=== PATIENT | female | born 1935 | race Caucasian/White ===

== ENCOUNTER → 2017-12-04 10:48 | Outpatient (CLI) | payer MEDICARE, SELFPAY ==
--- NOTE | 2017-12-04 10:57 | XR_ITS ---
XR foot RT min 3V HISTORY: Foot pain ITS.REASON: FLAT FOOT, HAMMERTOE ORDERING PHYSICIAN: Claudia Mccabe DPM PATIENT AGE: 82 years COMPARISON: None FINDINGS: Weightbearing views are performed. There is moderate to severe hallux valgus with first metatarsophalangeal angle of 46 degrees with mild osteoarthritic changes of the first MTP joint and hypertrophic changes of the distal aspect of the first metatarsal. Hammertoe deformity involves the second digit. There is mild pes planus. Cortical thickening involves the medial aspect of the mid shaft of the third metatarsal. No acute fracture or dislocation. IMPRESSION: 1. Hallux valgus with bunion formation. 2. Pes planus. 3. Hammertoe deformity second digit
--- NOTE | 2017-12-04 10:57 | XR_ITS ---
XR foot LT min 3V HISTORY: Foot pain ITS.REASON: FLAT FOOT, HAMMERTOE ORDERING PHYSICIAN: Claudia Mccabe DPM PATIENT AGE: 82 years COMPARISON: None FINDINGS: Weightbearing views are performed. There is moderate to severe hallux valgus with first metatarsophalangeal angle of 39 degrees with hypertrophic changes of the distal aspect of the first metatarsal and mild osteoarthritic change of the first metatarsophalangeal joint. Mild cortical thickening involves the medial aspect of the shaft of the third metatarsal. Mild osteoarthritic changes are present at the second and third cuneiform metatarsal junction. Borderline pes planus. Hammertoe deformity involves the second digit. IMPRESSION: 1. Hallux valgus with bunion formation. 2. Hammertoe deformity second digit 3. Borderline pes planus. 4. Osteoarthritic change of the midfoot
== END ==
PROVIDERS: Visit Provider Podiatrist
DX: M20.40 Other hammer toe(s) (acquired), unspecified foot (principal); M21.40 Flat foot [pes planus] (acquired), unspecified foot
CPT/HCPCS: 73630

== ENCOUNTER → 2017-12-13 12:48 | Outpatient (CLI) | payer MEDICARE, SELFPAY ==
--- NOTE | 2017-12-13 12:54 | US_ITS ---
US Arterial Ankle Brachial Ind INDICATION: Feet pain. Bilateral bunions with skin changes ORDERING PHYSICIAN: Claudia Mccabe DPM PATIENT AGE: 82 years TECHNIQUE: Segmental pressures obtained of both right and left leg. These are compared to brachial blood pressure to yield index at each level sampled including summary MYNOR. The data sheets from the procedure are available in PACS FINDINGS Rest study only performed today No prior studies available for comparison. Blood pressures reported are in millimeters mercury. RIGHT LEG MYNOR = 1.0. Right TBI equals 0.9 Brachial BP: 135 Thigh BP: 162 Calf BP: 165 Ankle PT: 155 Ankle DP : 149 Digit =127 LEFT LEG MYNOR = 1.0 Left TBI equals 0.6 Brachial BPD: 143 Thigh BP: 160 Calf BP: 152 Ankle PT:165 Ankle DP: 147 Digit = 89 Pulses and waveforms: Normal IMPRESSION: The ABIs as reported above are within normal limits. Waveforms and pulses are also unremarkable. TBI on the right is normal. The left TBI is slightly low at 0.6 suggesting small vessel disease on the left.
== END ==
PROVIDERS: PCP Internal Medicine Adolescent Medicine; Visit Provider Podiatrist
DX: R23.9 Unspecified skin changes (principal); R52 Pain, unspecified
CPT/HCPCS: 93922

== ENCOUNTER → 2018-01-09 06:46 | Outpatient (CLI) | payer MEDICARE, SELFPAY ==
--- NOTE | 2018-01-09 | CA_ITS ---
PROCEDURE: 2-D M-mode and color Doppler study INDICATIONS FOR THE TEST: Chest pain COPD Heart Murmur Tobacco Smokingex Palpitations Fatigue Syncope Edema Hypertension+Diabetes Mellitus Rheumatic Fever SOB MIRANDA Obesity Hyperlipidemia+ Family History HD Additional History abn EKG PATIENT INFORMATION HEIGHT: 67 WEIGHT: 174 GENDER: Female B/P: 181/91 2-D/M-MODE INTERPRETATION: 2-D MEASUREMENTS OBSERVED VALUES IN CMS Right Ventricular Dimension (RVDd) 2.6 Interventricular Septum (Thickness)(IVsd) 1.2 Left Ventricular Internal Dimensions(LVIDd) 3.3 Left Ventricular Posterior Wall (Thickness)(LVPWd) 1.2 Aortic Root 3.8 Aortic Cusp Separation 2.1 Left Atrial Dimensions (LAD) 2.0 2D 1. Left atrium is mildly enlarged, left ventricle is normal size, there is mild concentric left ventricular hypertrophy visually estimated ejection fraction 55% with no obvious regional wall motion abnormality. 2. The right atrium and right ventricle are normal size and contractility. 3. The aortic valve is minimally thickened and fibrosed. 4. The mitral valve has mitral annular calcification. 5. The tricuspid valve is grossly normal. 6. The pulmonic valve is poorly visualized. 7. No significant pericardial effusion noted. DOPPLER INTERROGATION: Doppler interrogation of the aortic, mitral and tricuspid presence of mild aortic, mitral and tricuspid regurgitation, tricuspid regurgitant jet velocity is insufficient for calculation of the right ventricular systolic pressure, grade 1 diastolic dysfunction seen without tissue Doppler evidence of raised left atrial pressure. CONCLUSION: 1. Mildly enlarged left atrium, normal left ventricular size, mild concentric left ventricular hypertrophy, visually estimated ejection fraction 55% with no obvious regional wall motion abnormality, grade 1 slight dysfunction seen without tissue Doppler evidence of raised left atrial pressure. 2. Mild aortic, mild mitral and tricuspid regurgitation 3. No significant pericardial effusion noted.
--- NOTE | 2018-01-09 06:55 | NM_ITS ---
NM miguel angel perf SPECT rest str CLINICAL INDICATION: ITS.REASON: PRE OP, HTN, ABN EKG ORDERING PHYSICIAN: Star Benavides MD PATIENT AGE: 82 years COMPARISON: None DOSE: 10.18 intravenously at rest followed by 31.8 following the intravenous ministration of 0.4 mg of Lexiscan. Resting blood pressure is 181/91. Stress blood pressure 158/81. FINDINGS: Ejection fraction is calculated to be 68%. No obvious wall motion abnormalities. SPECT and polar map images reviewed. No fixed or reversible defects are evident that would indicate infarction or ischemia IMPRESSION: 1. Normal ejection fraction of 68%. 2. No evidence of ischemia or infarction
--- NOTE | 2018-01-09 08:07 | HMH.ITSHM ---
MELOXICAM THYROID MED ASA VITAMIN D3 PERSERVISION PRAVASTIN
--- NOTE | 2018-01-09 08:49 | HMH.ITSHM ---
melozicam, thyroid med, aspirin, vit d3, perservision, pravastatin
== END ==
PROVIDERS: PCP Internal Medicine Adolescent Medicine; Visit Provider Internal Medicine
DX: Z01.810 Encounter for preprocedural cardiovascular examination (principal); R94.31 Abnormal electrocardiogram [ECG] [EKG]; E78.5 Hyperlipidemia, unspecified; I10 Essential (primary) hypertension
CPT/HCPCS: 78452; 93017; 93306; A9502; J2785

== ENCOUNTER → 2018-02-05 12:12 | Outpatient (CLI) | payer MEDICARE, SELFPAY ==
[2018-02-05 12:32] LABS: Basophils % 0.5 % (0.1-2.0); Eosinophils # 0.1 K/mm3 (0.0-0.4); Eosinophils % 1.1 % (0.1-12.0); Hematocrit 37.8 % (37.0-47.0); Hemoglobin 11.5 g/dL (12.2-16.2); Lymphocytes % 32.2 K/mm3 (10-50); Mean Corpuscular HGB Conc 30.5 g/dL (31.8-35.4); Mean Corpuscular Hemoglobin 27.8 pg (27.0-31.2); Mean Corpuscular Volume 91.1 fl (81-99); Monocytes # 0.4 K/mm3 (0.1-1.0); Monocytes % 6.2 % (1.7-9.3); Neutrophils # 3.8 K/mm3 (1.8-7.8); Platelet Count 287 K/mm3 (142-424); Red Blood Count 4.15 M/mm3 (4.20-5.40); Red Cell Distribution Width 13.3 % (11.5-17.5); White Blood Count 6.3 K/mm3 (4.8-10.8)
[2018-02-05 12:46] LABS: Alanine Aminotransferase 24 U/L (12-78); Albumin Level 4.2 gm/dL (3.4-5.0); Albumin/Globulin Ratio 1.2 (1.1-1.8); Alkaline Phosphatase 71 U/L (46-116); Anion Gap 11.9 mEq/L (5-15); Aspartate Amino Transferase 20 U/L (15-37); Bilirubin,Total 0.5 mg/dL (0.2-1.0); Blood Urea Nitrogen 26 mg/dL (7-18); Calcium 9.5 mg/dL (8.5-10.1); Carbon Dioxide 28 mmol/L (21.0-32.0); Chloride 107 mmol/L (98-107); Creatinine,Serum 1.08 mg/dL (0.55-1.02); Estimated Glomerular Filt Rate 48 ml/min (>60); GFR (African American) 59 ML/MIN (>60); Globulin 3.4 gm/dl (1.3-3.2); Glucose 109 mg/dL (74-106); Potassium 3.9 mmoL/L (3.5-5.1); Sodium 143 mmol/L (136-145); Thyroid Stimulating Hormone 1.66 uIU/ml (0.358-3.740); Total Protein,Serum 7.6 gm/dL (6.4-8.2)
== END ==
PROVIDERS: Visit Provider Nurse Practitioner Family
DX: Z00.00 Encounter for general adult medical examination without abnormal findings (principal); I10 Essential (primary) hypertension; D64.9 Anemia, unspecified; E03.9 Hypothyroidism, unspecified
CPT/HCPCS: 36415; 80053; 84443; 85025

== ENCOUNTER → 2018-03-08 08:29 | Outpatient (CLI) | payer MEDICARE, SELFPAY ==
[2018-03-07 11:10] VITALS: BMI 27.2
[2018-03-08] VITALS (12 sets, daily range): BP systolic 115–172; BP diastolic 67–88; PULSE 77–93; RESP 14–23; TEMP 36.3–43; O2SAT 94–100
--- NOTE | 2018-03-08 | XR_ITS ---
XR foot RT 2V COMPARISON: Right foot 12/04/2017 HISTORY: Bunionectomy and hammertoe correction surgery TECHNIQUE: Fluoroscopy during surgery FINDINGS: Multiple fluoroscopic spot films were obtained showing osteotomy to the medial aspect of the first metatarsal head. Subsequent spot films show placement of the threaded screw through the osteotomy site first metatarsal head and there is a metallic staple at the base of the proximal phalanx of the great toe. The metallic wire is seen traversing the distal middle and proximal phalanx of the second toe extending into the head of the second metatarsal. IMPRESSION: Fluoroscopy confirming surgical procedures involving the great toe and second toe
--- NOTE | 2018-03-08 14:49 | HMH.OPNOTE ---
Date of procedure: 03/08/18 Pre-op Diagnosis:: Right hallux abductovalgus deformity Right hammertoe 2nd digit Right 2nd plantar plate rupture Right metatarsalgia Post-op Diagnosis:: Right hallux abductovalgus deformity Right hammertoe 2nd digit Right 2nd plantar plate rupture Right metatarsalgia Procedure performed:: Right Jeff bunionectomy Right Ozzy osteotomy Right 2nd PIPJ arthrodesis Right 2nd MPJ Release Surgeon:: Claudia Mccabe DPM INDUSTRIAL SALES ENGINEER:: Jason Gabriel Anesthesia: LMA Estimated blood loss (mL): 20 Clinical Note:: Patient states the right foot pain is worse than the left. It has been bothering her for several years but progressively getting worse. Pain is worse when weightbearing with tight close toed shoes. Maximum point of tenderness is on the right bunion bump . She wears [id number] inserts and stretch shoes. She is on Mobic. Pain 02/26. Patient is requesting surgical intervention to remove the bunions. Right Bunion, HT2 Pre-op: The patient has tried modification of shoe gear, taping, strapping, inserts, ice, elevation, and NSAIDs. After a long discussion with the patient in regards to the conservative versus surgical treatment for the bunion deformity, the patient has elected to proceed with surgery because they have failed conservative treatment and continue to have pain and worsening symptoms affecting daily activities. The patient has been instructed on the planned procedure, all risk versus benefits of the procedure to include bleeding, infection, nerve and blood vessel damage, need for further surgery, delay in healing of soft tissue or bone, failure of bones to heal, non-union, mal-union, prolonged pain and recovery, prolonged swelling, CRPS/RSD, DVT and anesthetic complications. We discussed vascular studies and the risk of delayed healing, risk of infection and amputation. We discussed cardiac history and even though she is low risk , there is still risk and possible complications including cardiac arrest and . No guarantees were given. All questions fully answered. The patient verbalized understanding and agreed to proceed with surgery. Consent was obtained. Necessary labs and pre-op testing ordered. Medical and Cardiac clearance obtained. MYNOR reviewed and patient deemed low risk for surgeyr. Rx for [place] 7.5/325, Zofran. Discussed DVT/PE. No Lovenox given. Patient will take aspirin post op. Patient has walker. Plan surgery 03/08/18: right Jeff bunionectomy, possible Ozzy osteotomy, HT 2 repair, possible 2nd metatarsal osteotomy Operative findings:: Severe bunion deformity. 1st ray hypermobility. Free floating fibular sesamoid. Complete 2nd plantar plate rupture. Arthritic changes to the 1-2nd metatarsal heads. Operative note:: On this date and time patient was deemed an appropriate surgical candidate. With informed consent signed, the patient was taken to the operating theater. The patient was positioned supine. General LMA anesthesia was induced. Tourniquet was applied to the right mid-calf. Pre-op right foot block given with 20cc 0.5% marcaine plain. RIGHT Jeff bunionectomy with modified Grande: Attention was directed to the dorsal medial aspect of the RIGHT foot. Tourniquet was inflated at 225 mmHg. An incision was mapped out over the medial aspect of the first MPJ. Dissection was carried to skin and sub tissue, with care to maintain surgical hemostasis and safely retract NV structures. Dissection was taken down to level the first metatarsal phalangeal joint, soft tissue was T ed out at the joint exposing the met head. Attention was directed to first interspace where lateral release was performed including release of the adductor tendon at its insertion on base on proximal phalanx. The fibular suspensory ligament was also released. It should be noted that the fibular sesamoid was not attached and was free floating space. Attention was directed to the dorsal medial eminence where a sagittal saw was use
--- NOTE | 2018-03-08 14:50 | P.PN_ITS ---
[facility] Anesthesia Checklist - Patient Identification Patient Identification: Arm Band - Structural Data Admitted From: Home Planned Operative Procedure/s: right riri bunionectomy, right laurita osteotomy, hammertoe repair 2nd digit Consent for Planned Operative Procedure(s) Verified: Yes Verified Documents: Surgical Consent, History and Physical - NPO Status Verified Time NPO: 00:00 - Additional verifications Anesthesia Reactions: No - Airway Assessment C-Spine Mobility Assessed: Yes (mp2) TMJ Mobility Assessed: Yes Dentition: Good Dentition - Neurological Assessment Level of Consciousness: Awake, Alert - Anesthesia Plan Anesthesia Risk discussed: Yes Anesthesia Plan: Verified ASA Class: II Anesthesia Type: General [facility] Anesthesia HX I have reviewed the patient's past medical history: Yes Medical History: Reports:: Cancer (MELANOMA RIGHT SHOULDER), Hyperlipidemia, Hypertension Denies:: Aneurysm, Arrhythmia, Asthma, Congestive Heart Failure, Chronic Obstructive Pulmonary Disease (COPD), Coronary Artery Disease, Cerebrovascular Accident, Deep Vein Thrombosis, Diabetes Mellitus Type 1, Diabetes Mellitus Type 2, Gastroesophageal Reflux Disease(GERD), Internal Pacemaker, MRSA, Seizures Other Medical History: Reports: Arthritis, Hypothyroidism. Denies: Blood Transfusion Reaction Laterality Cases: Bilateral: Cataract Other Surgeries: Yes: Hysterectomy-Total, Other. No: Pacemaker Amputation: No Fractures: No *Family Hx:: Cancer, Hypertension
--- NOTE | 2018-03-08 14:50 | P.PN_ITS ---
[facility] Anesthesia Record Part I Intake, IV Amount: 1,400 Estimated blood loss (mL): 0 Urine output (mL): 0 Blood Pressure: 135/81 SaO2: 96 Pulse Rate: 93 Respiratory Rate: 16 Temperature: 97.4 F Patient is:: Drowsy, Stable Stable to PACU at:: 14:45
--- NOTE | 2018-03-08 14:50 | HMH.ANESII ---
[facility] Anesthesia Record Part II Discharge Time: 15:15 Destination: [facility] PACU nurse assessment reviewed?: Yes Patient Condition:: Good Anesthesia Complications:: None
--- NOTE | 2018-03-08 14:51 | P.PN_ITS ---
[facility] Anesthesia Record Part II Discharge Time: 15:15 Destination: [facility] PACU nurse assessment reviewed?: Yes Patient Condition:: Good Anesthesia Complications:: None
--- NOTE | 2018-03-08 14:53 | P.OP_ITS ---
Date of procedure: 03/08/18 Pre-op Diagnosis:: Right hallux abductovalgus deformity Right hammertoe 2nd digit Right 2nd plantar plate rupture Right metatarsalgia Post-op Diagnosis:: Right hallux abductovalgus deformity Right hammertoe 2nd digit Right 2nd plantar plate rupture Right metatarsalgia Procedure performed:: Right Jeff bunionectomy Right Ozzy osteotomy Right 2nd PIPJ arthrodesis Right 2nd MPJ Release Surgeon:: Claudia Mccabe DPM WOOD TYPE CUTTER:: Jason Gabriel Anesthesia: LMA Estimated blood loss (mL): 20 Clinical Note:: Patient states the right foot pain is worse than the left. It has been bothering her for several years but progressively getting worse. Pain is worse when weightbearing with tight close toed shoes. Maximum point of tenderness is on the right bunion bump . She wears [id number]-[id number] inserts and stretch shoes. She is on Mobic. Pain 02/26. Patient is requesting surgical intervention to remove the bunions. Right Bunion, HT2 Pre-op: The patient has tried modification of shoe gear, taping, strapping, inserts, ice , elevation, and NSAIDs. After a long discussion with the patient in regards to the conservative versus surgical treatment for the bunion deformity, the patient has elected to proceed with surgery because they have failed conservative treatment and continue to have pain and worsening symptoms affecting daily activities. The patient has been instructed on the planned procedure, all risk versus benefits of the procedure to include bleeding, infection, nerve and blood vessel damage, need for further surgery, delay in healing of soft tissue or bone, failure of bones to heal, non-union, mal-union, prolonged pain and recovery, prolonged swelling, CRPS/RSD, DVT and anesthetic complications. We discussed vascular studies and the risk of delayed healing, risk of infection and amputation. We discussed cardiac history and even though she is low risk , there is still risk and possible complications including cardiac arrest and . No guarantees were given. All questions fully answered. The patient verbalized understanding and agreed to proceed with surgery. Consent was obtained. Necessary labs and pre-op testing ordered. Medical and Cardiac clearance obtained. MYNOR reviewed and patient deemed low risk for surgeyr. Rx for [place] 7.5 /325, Zofran. Discussed DVT/PE. No Lovenox given. Patient will take aspirin post op. Patient has walker. Plan surgery 03/08/18: right Jeff bunionectomy, possible Ozzy osteotomy, HT 2 repair, possible 2nd metatarsal osteotomy Operative findings:: Severe bunion deformity. 1st ray hypermobility. Free floating fibular sesamoid. Complete 2nd plantar plate rupture. Arthritic changes to the 1-2nd metatarsal heads. Operative note:: On this date and time patient was deemed an appropriate surgical candidate. With informed consent signed, the patient was taken to the operating theater. The patient was positioned supine. General LMA anesthesia was induced. Tourniquet was applied to the right mid-calf. Pre-op right foot block given with 20cc 0.5% marcaine plain. RIGHT Jeff bunionectomy with modified Grande: Attention was directed to the dorsal medial aspect of the RIGHT foot. Tourniquet was inflated at 225 mmHg. An incision was mapped out over the medial aspect of the first MPJ. Dissection was carried to skin and sub tissue, with care to maintain surgical hemostasis and safely retract NV structures. Dissection was taken down to level the first metatarsal phalangeal joint, soft tissue was T ed out at the joint exposing the met head. Attention was directed to first interspace where lateral release was performed including release of the adductor tend
--- NOTE | 2018-03-08 15:12 | XR_ITS ---
XR foot RT min 3V COMPARISON: Right foot 12/04/2017 HISTORY: Post bunionectomy and hammertoe correction surgery TECHNIQUE: Portable AP lateral and oblique projections FINDINGS: Postsurgical changes of the great toe are noted. The osteotomy through the medial aspect of the head of the first metatarsal with a threaded screw in place. There is a metallic clip at the base of the proximal phalanx great toe. The metallic pin is seen extending from the distal phalanx of the middle phalanx and into the proximal phalanx and head of the second metatarsal for correction of hammertoe deformity. IMPRESSION: Postsurgical changes of the forefoot as described
== END ==
PROVIDERS: PCP Internal Medicine Adolescent Medicine; Visit Provider Podiatrist
DX: M20.41 Other hammer toe(s) (acquired), right foot (principal); M21.611 Bunion of right foot; M20.5X1 Other deformities of toe(s) (acquired), right foot; M77.41 Metatarsalgia, right foot
CPT/HCPCS: 28285; 28299; 73620; 73630; 76000; 96374; 99281; C1713; C1762; J2405

== ENCOUNTER → 2018-03-19 14:24 | Outpatient (CLI) | payer MEDICARE, SELFPAY ==
--- NOTE | 2018-03-19 14:25 | XR_ITS ---
XR foot wt bearing RT 3V HISTORY: Follow-up surgery ITS.REASON: Status Post Surgery ORDERING PHYSICIAN: Claudia Mccabe DPM PATIENT AGE: 82 years COMPARISON: 03/08/2018 FINDINGS: Postsurgical changes once again noted with osteotomy and the distal aspect of the first metatarsal and proximal aspect of the proximal phalanx of the great toe with a pen noted within the distal middle and proximal phalanx into the head of the second metatarsal. There remains good alignment. There is some developing callus formation medially at the first metatarsal osteotomy. There is mild dorsal displacement of the head of the first metatarsal by approximately 2 mm not readily apparent on the previous exam IMPRESSION: 1. Status post osteotomy of the distal first metatarsal and proximal aspect of the proximal phalanx of the great toe with a staple within the proximal phalanx and a screw within the distal aspect of the first metatarsal with callus formation developing at the first metatarsal. There is some mild dorsal displacement of the head of the first metatarsal not readily apparent on the previous exam. 2. No change in the hand through the second toe into the head of the second metatarsal
== END ==
PROVIDERS: PCP Internal Medicine Adolescent Medicine; Visit Provider Podiatrist
DX: Z98.890 Other specified postprocedural states (principal)
CPT/HCPCS: 73630

== ENCOUNTER → 2018-04-05 08:52 | Outpatient (CLI) | payer MEDICARE, SELFPAY ==
[2018-04-05 10:16] LABS: Alanine Aminotransferase 19 U/L (12-78); Albumin Level 3.7 gm/dL (3.4-5.0); Alkaline Phosphatase 87 U/L (46-116); Anion Gap 13.7 mEq/L (5-15); Aspartate Amino Transferase 18 U/L (15-37); Bilirubin,Direct 0.2 mg/dL (0.0-0.2); Bilirubin,Indirect 0.3 mg/dL (0.0-0.9); Bilirubin,Total 0.5 mg/dL (0.2-1.0); Blood Urea Nitrogen 37 mg/dL (7-18); Carbon Dioxide 25 mmol/L (21.0-32.0); Chloride 107 mmol/L (98-107); Chol/HDL Ratio 3.2 (1-3.5); Cholesterol 184 mg/dL (140-200); Creatinine,Serum 1.32 mg/dL (0.55-1.02); Estimated Glomerular Filt Rate 38 ml/min (>60); GFR (African American) 47 ML/MIN (>60); Glucose 96 mg/dL (74-106); HDL Cholesterol 57 mg/dL (29-89); LDL Cholesterol 108 mg/dL (0-130); Potassium 4.7 mmoL/L (3.5-5.1); Sodium 141 mmol/L (136-145); Total Protein,Serum 6.4 gm/dL (6.4-8.2); Triglycerides 96 mg/dL (30-200); VLDL Cholesterol 19 mg/dL (0-40)
== END ==
PROVIDERS: PCP Internal Medicine Adolescent Medicine; Visit Provider Internal Medicine Cardiovascular Disease
DX: E78.2 Mixed hyperlipidemia (principal)
CPT/HCPCS: 36415; 80048; 80061; 80076

== ENCOUNTER → 2018-04-09 14:27 | Outpatient (CLI) | payer MEDICARE, SELFPAY ==
--- NOTE | 2018-04-09 14:28 | XR_ITS ---
XR foot wt bearing RT 3V HISTORY: Follow-up surgery ITS.REASON: post-op views ORDERING PHYSICIAN: Claudia Mccabe DPM PATIENT AGE: 82 years COMPARISON: 03/19/2018 FINDINGS: There has been prior hallux valgus surgery with osteotomy of the distal aspect of the first metatarsal with oblique screw this region. The distal fracture fragment appears slightly more displaced dorsally compared to the previous exam with only 6 mm dorsal displacement of the distal fracture fragment previously at 3 mm. The medial ozzie present at the base of the proximal phalanx of the first digit as before. A pin is present through the phalanges of the second toe into the head of second metatarsal. IMPRESSION: Status post surgery of the right foot as described above. There may be slight dorsal displacement of the distal osteotomy fragment at the first metatarsal. No other changes evident
== END ==
PROVIDERS: Visit Provider Podiatrist
DX: Z98.890 Other specified postprocedural states (principal)
CPT/HCPCS: 73630

== ENCOUNTER → 2018-04-25 09:12 | Outpatient (CLI) | payer MEDICARE, SELFPAY ==
--- NOTE | 2018-04-25 09:16 | XR_ITS ---
XR foot wt bearing RT 3V HISTORY: Follow-up surgery ITS.REASON: postop views ORDERING PHYSICIAN: Claudia Mccabe DPM PATIENT AGE: 82 years COMPARISON: 04/09/2018 FINDINGS: The cast has been placed. The hand remains present through the tip of the distal phalanx of the second toe to the head of the second metatarsal. Staple is present through the proximal aspect of the proximal phalanx of the great toe with osteotomy at that site. Oblique screw once again noted through the distal aspect of the first metatarsal with an osteotomy at that site. There is mild dorsal angulation of the distal aspect of the first metatarsal not significant changed. IMPRESSION: Interval placement of cast otherwise no change in the postsurgical changes as described above
== END ==
PROVIDERS: Visit Provider Podiatrist
DX: Z98.890 Other specified postprocedural states (principal)
CPT/HCPCS: 73630

== ENCOUNTER → 2018-05-14 09:23 | Outpatient (CLI) | payer MEDICARE, SELFPAY ==
--- NOTE | 2018-05-14 09:27 | XR_ITS ---
XR foot wt bearing RT 3V HISTORY: Follow-up surgery ITS.REASON: post-op views ORDERING PHYSICIAN: Claudia Mccabe DPM PATIENT AGE: 82 years COMPARISON: 04/25/2018 FINDINGS: No change status post osteotomy of the distal aspect of the first metatarsal and proximal aspect of the proximal phalanx of the great toe with a staple in place at the proximal phalanx region and screw within the distal aspect of the first metatarsal. There is dorsal displacement of the distal fracture fragment of the first metatarsal with mild dorsal angulation of the distal aspect of the first metatarsal. The dorsal displacement may be slightly greater on today's exam. There is been interval removal of the pin within the second toe.. IMPRESSION: Appears to been further dorsal displacement of the distal aspect of the first metatarsal at the osteotomy site with mild dorsal angulation of the distal fracture fragment. A staple remains in place at the proximal aspect of the proximal phalanx of the great toe. Interval removal of the pin within the second toe
== END ==
PROVIDERS: Visit Provider Podiatrist
DX: Z98.890 Other specified postprocedural states (principal)
CPT/HCPCS: 73630

== ENCOUNTER → 2018-07-02 10:30 | Outpatient (CLI) | payer MEDICARE, SELFPAY ==
--- NOTE | 2018-07-02 10:31 | XR_ITS ---
XR foot wt bearing RT 3V HISTORY: Follow-up surgery ITS.REASON: post-op views ORDERING PHYSICIAN: Claudia Mccabe DPM PATIENT AGE: 82 years COMPARISON: 05/14/2018 FINDINGS: Status post osteotomy of the distal first metatarsal and the proximal aspect of the proximal phalanx of the first toe there is mild dorsal displacement and angulation of the distal osteotomy fragment at the first metatarsal not significant change. IMPRESSION: Overall no change status post osteotomy of the distal first metatarsal with dorsal displacement of the distal bone fragment and osteotomy of the proximal aspect of the proximal phalanx of the great toe
== END ==
PROVIDERS: Visit Provider Podiatrist
DX: Z98.890 Other specified postprocedural states (principal); S92.401A Displaced unspecified fracture of right great toe, initial encounter for closed fracture
CPT/HCPCS: 73630

== ENCOUNTER → 2018-11-04 14:05 | Outpatient (CLI) | payer MEDICARE, SELFPAY ==
--- NOTE | 2018-11-04 14:10 | XR_ITS ---
XR shoulder RT min 2V, XR shoulder LT min 2V Ordering Physician: Leatha Chan MD Patient Age: 82 years: Female HISTORY: ITS.REASON: CARLOS SHOULDER PAIN Bilateral shoulder plain with decreased range of motion possible arthritis TECHNIQUE: Left shoulder 3 views Right shoulder 3 views COMPARISON :No relevant prior studies RIGHT SHOULDER 3 VIEWS glenohumeral joint is intact. Humeral head and neck appear intact with only subtle roughening at the cap of the greater tuberosity which can be seen with impingement and degenerative change. Modest but adequate subacromial space. Minor degenerative changes at the ac joint. Scapula intact. Upper right ribs unremarkable. LEFT SHOULDER 3 VIEWS glenohumeral joint is intact. Humeral head and neck appear intact with.. More generous subacromial space is seen on the left. Only Scant degenerative changes at the ac joint on the left Scapula intact.. . Bones well mineralized bilaterally. IMPRESSION: --------- The right and left shoulder appear intact. Glenohumeral joint is intact mild degenerative changes at AC joint noted on right more than left
== END ==
PROVIDERS: PCP Emergency Medicine; Visit Provider Emergency Medicine
DX: M25.511 Pain in right shoulder (principal); M25.512 Pain in left shoulder
CPT/HCPCS: 73030

== ENCOUNTER → 2018-11-13 13:11 | Outpatient (CLI) | payer MEDICARE, SELFPAY ==
--- NOTE | 2018-11-13 13:15 | MR_ITS ---
MR shoulder RT wo con Ordering Physician: Leatha Chan MD Patient Age: 83 years: Female HISTORY: ITS.REASON: BILATERAL SHOULDER PAIN Bilateral shoulder pain 2 months n. Difficulty reaching around to back back. Limited range of motion Previous right shoulder RCT repair years ago TECHNIQUE: Multiplanar multisequence imaging 1.5 Lauryn MRI no contrast . COMPARISON :Plain films right shoulder 02/12/2015 & 11/04/2018. FINDINGS RIGHT SHOULDER . Micro metallic artifact right shoulder from previous rotator cuff repair procedure . 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 Joint Fluid is seen passing through this full-thickness cuff defect into the subdeltoid subacromial space.. . This is tear appears to involve entire supraspinatus tendon with tendon retraction and prominent muscle atrophy of the supraspinatus muscle. Along the superior migration of the humeral head and glenohumeral joint. These features also suggest long-standing rotator cuff tear here. Possibly of recent exacerbation. Generous joint effusion with fluid extending into the subcoracoid recess as well as into the subdeltoid subacromial bursa., bursa through the generous full thickness supraspinatus tendon tear defect. The infraspinatus tendon with slight increased signal most evident towards the superior aspect, likely reflecting reflecting mainly tendinopathy. Possible minor partial tear at superior margin but no tendon retraction nor prominent infraspinatus tendon tear... Only minimal atrophy at the infraspinatus muscle The subscapularis tendon and muscle appears intact. . The inferior anterior glenoid labrum is better defined on the left than right shoulder, & appears intact. No labral tear here. Posterior labrum intact. Glenohumeral cartilage remains intact but there is superior migration of the humeral head which along with the supraspinatus tear narrows of the subacromial space to 3.3 mm, beneath the tip of acromion.. Acromion Fairly neutral on coronal image.: There may have been some partial resection of acromion on previous surgical procedure. AC joint arthropathy and mild hypertrophy.. . The biceps tendon is difficult to visualize as it passes above the bicipital groove over the humeral head. It may well be torn. IMPRESSION: RIGHT shoulder 1. Postsurgical metallic artifact and postsurgical changes at right shoulder presumably from from previous RCT repair. 2. . Recurrent full-thickness supraspinatus tear. Likely long-standing tear here with with atrophy of supraspinatus muscle & Superior migration of humeral head , with Marked Narrowed subacromial space. 3. Prominent Joint effusion-with free flow of joint fluid through this RCT defect into the subdeltoid/subacromial bursa.. 4. Biceps tendon is not well visualized,, suspect biceps tendon tear . 5.. Infraspinatus tendinopathy with question/suspect mild partial tear towards its superior margin.. Mild atrophy infraspinatus muscle associated. 6. AC joint arthropathy/hypertrophy .
--- NOTE | 2018-11-13 13:16 | MR_ITS ---
MR shoulder LT wo con Ordering Physician: Leatha Chan MD Patient Age: 83 years: Female HISTORY: ITS.REASON: BILATERAL SHOULDER PAIN Bilateral shoulder pain 2 months. Limited range of motion when moving arm behind back. TECHNIQUE: Multiplanar multisequence imaging 1.5T MRI. COMPARISON :Plain films of left shoulder from 11/04/2018 FINDINGS Prominent full-thickness rotator involving the Supraspinatus Tendon.. At least 1.6 cm AP dimension of this tear with slightly greater degree tendon retraction.. . This supraspinatus tendon tear/RCT occurred just beneath the the downward sloping tip of the acromion, which narrows the subacromial space to 3.8 mm beneath the tip of acromion- yielding this subacromial stenosis. . This anatomy likely has given rise to the rotator cuff demise and tear here...With this narrowing subacromial space , there is tear there is associated superior migration of humeral head suggesting long-standing RCT.. The infraspinatus tendon appears intact perhaps some mild tendinopathy at superior margin but overall intact. The subscapularis tendon appears intact. The biceps tendon nicely visualized appears intact. Large joint effusion. Extends anterior and posterior with free fluid passing through the generous rotator cuff tear defect into the subdeltoid subacromial bursa. The anterior labrum appears irregular on these images. Anterior labral tear is suspect AC joint arthropathy,. & Mild hypertrophy. Fluid extends into the AC joint & possibly reflecting extension of fluid at subacromial bursal. .... IMPRESSION...: Left SHOULDER MRI...... 1. Large full-thickness complete rotator cuff tear defect involving supraspinatus tendon. .At least 1.6 cm AP full-thickness tear, with tendon retraction ..Associated superior migration of humeral head & some atrophy of the supraspinatus muscle suggesting long-standing tear here . Also Downward sloping at tip of acromion with prominent subacromial stenosis-contributing to this supraspinatus tendon tear and RCT impingement/& demise. 2.. Large joint effusion with fluid flowing through full-thickness rotator cuff tear into the subdeltoid subacromial bursa. 4.. Irregular appearance anterior labrum-suspect for anterior labral tear.
== END ==
PROVIDERS: PCP Emergency Medicine; Visit Provider Emergency Medicine
DX: M25.511 Pain in right shoulder (principal); M25.512 Pain in left shoulder
CPT/HCPCS: 73221

== ENCOUNTER 2020-12-31 08:56 | Outpatient (RCR) | payer MEDICARE, SELFPAY ==
--- NOTE | 2020-12-31 10:17 | HMH.PTOPEV ---
PT Outpatient Evaluation Rehab PT Outpatient Evaluation Start: 12/31/20 09:46 Freq: Status: Active Protocol: Document 12/31/20 09:47 DHARASHANTA (Rec: 12/31/20 10:17 DHARAROGERMONY [id number]) Electronically Signed By Rolando Salgado, PT 12/31/20 09:47 Outpatient Therapy Subjective History Subjective History Patient is a 85 year old female presenting to outpatient PT with reports of R shoulder pain of insidious onset starting approx 4 weeks ago. Most recent imaging indicates full thickness Supraspinatus tear and possible anterior labral tear. Comorbidities indicate hx of melanoma. Chief Complaint Pain,Weakness Symptom Type Sharp Symptoms Relieved By Heat,Prescription Meds Symptoms Aggravated By Physical Activity,Lifting Prior Functional Limitations None Current Functional Limitations Reaching,Lifting,Housework, Dressing Symptom Description Intermittent Level of pain today (0-10) 0 Pain scale - at its best (0-10) 0 Pain scale - at its worst (0-10) 7 Shoulder/Elbow Eval Shoulder Objective Measurements Palpation Tenderness tenderness shoulder exam standard right tenderness over the bicipital tendon right shoulder exam standard Shoulder Palpation Findings Tenderness Shoulder Palpation Overall Comment R ACJ Posture Shoulder Posture Sitting Position (L) Forward,(R) Forward Shoulder Posture Standing Position (L) Forward,(R) Forward,(L) Elevated Scapula Posture Sitting Position (R) Protracted Scapular Posture Standing Position (R) Protracted Shoulder ROM Bilateral full ROM shoulder exam standard bilateral Shoulder MMT Left Shoulder Strength Reason Not Measured WFL Right Shoulder Abduction Strength Grade 3+ Fair+ Shoulder Flexion Strength Grade 3+ Fair+ Shoulder External Rotation Strength 3 Fair Grade Shoulder Internal Rotation Strength 3+ Fair+ Grade Shoulder Special Tests impingement sign present shoulder exam right standard Shoulder Drop Arm Test Negative Right Shoulder Cross-Over Impingement Test Positive Right Shoulder Rodriguez-Braden Impingement Positive Right Test Shoulder Neer Impingement Test Positive Right Elbow Objective Measurements Outpatient Therapy Assessment Impairments Problems/Impairmments Palpation Tenderness,Impaired Strength,Impaired Lifting, Impaired H
== END 2020-12-31 08:59 | disposition home or self-care (01) ==
LOC: PT 08:56
PROVIDERS: PCP Emergency Medicine; Visit Provider Family Medicine
DX: M12.811 Other specific arthropathies, not elsewhere classified, right shoulder (principal); M25.511 Pain in right shoulder
CPT/HCPCS: 97163

== ENCOUNTER → 2021-02-25 10:09 | Outpatient (CLI) | payer MEDICARE, SELFPAY ==
--- NOTE | 2021-02-25 10:12 | CA_ITS ---
APPROVED REPORT Mail Processing Associate: DAMON Laterality: Bilateral Indications: rt bruit Doppler Spectral Velocity Analysis ECA (R) 94.10/9.40 cm/s ECA (L) 85.70/12.00 cm/s dICA (R) 115.20/37.60 cm/s dICA (L) 106.20/29.10 cm/s Terrence (R) 66.00/18.80 cm/s Terrence (L) 88.30/20.60 cm/s pICA (R) 100.50/17.10 cm/s pICA (L) 74.50/19.70 cm/s dCCA (R) 90.90/19.20 cm/s dCCA (L) 92.90/15.30 cm/s pCCA (R) 109.10/21.40 cm/s pCCA (L) 97.60/11.80 cm/s Vert (R) 85.80/25.90 cm/s Vert (L) 81.40/18.00 cm/s ICA/CCA 1.27 ICA/CCA 1.14 Findings Duplex evaluation demonstrates stenosis of the right proximal internal carotid artery <20% with PSV <140 cm/sec, EDV <100 cm/sec, and IC/CC Ratio <4.0. Duplex evaluation demonstrates stenosis of the left proximal internal carotid artery <20% with PSV <140 cm/sec, EDV <100 cm/sec, and IC/CC Ratio <4.0. Conclusion Duplex evaluation demonstrates stenosis of the right proximal internal carotid artery <20% with PSV <140 cm/sec, EDV <100 cm/sec, and IC/CC Ratio <4.0. Duplex evaluation demonstrates stenosis of the left proximal internal carotid artery <20% with PSV <140 cm/sec, EDV <100 cm/sec, and IC/CC Ratio <4.0. Electronically signed by : Arun Mireles MD 02/25/2021 16:58:12
== END ==
PROVIDERS: PCP Family Medicine; Visit Provider Family Medicine
DX: R09.89 Other specified symptoms and signs involving the circulatory and respiratory systems (principal)
CPT/HCPCS: 93880

== ENCOUNTER → 2022-01-02 12:22 | Outpatient (CLI) | payer MEDICARE, SELFPAY | PROVIDERS: PCP Family Medicine; Visit Provider Family Medicine | DX: R42 Dizziness and giddiness (principal) | CPT/HCPCS: 93225; 93226 ==

== ENCOUNTER → 2022-01-12 13:51 | Outpatient (CLI) | payer MEDICARE, SELFPAY ==
--- NOTE | 2022-01-12 13:55 | US_ITS ---
FINAL REPORT TECHNIQUE: Ultrasound images of the kidneys and bladder were obtained. CLINICAL HISTORY: RENAL INSUFFICIENCY FINDINGS: Limited images of the lumbar are unremarkable. The right kidney measures 8.5 cm in length. There is a 1.5 cm right renal cyst. There is thinning of the renal cortex. There is no hydronephrosis. The left kidney measures 7.6 cm in length. It is normal in echogenicity. There is mild hydronephrosis. IMPRESSION: Mild left hydronephrosis. Recommend CT scan to evaluate source of obstruction. Reviewed, Interpreted and Dictated by Denilson Booth MD Transcribed by Savannah Jacome Authenticated by Denilson Booth MD on 01/12/2022 04:04:51 PM [facility]
--- NOTE | 2022-01-12 14:23 | MR_ITS ---
FINAL REPORT CLINICAL HISTORY: DIZZINESS. DIZZINESS WITH VOMITING. HEADACHE C1VTLOR. NO PRIOR. FINDINGS: Multi planar MR imaging was obtained through the brain without contrast. The midline structures appear intact. There is no evidence of Chiari malformation. There is moderate atrophy and proportionate ventriculomegaly. Small scattered foci of increased signal are seen in the deep white matter which are nonspecific. On diffusion-weighted images there is no evidence of restricted diffusion. There is mild abnormal signal in the right mastoid air cells consistent with chronic mastoiditis. The seventh and eighth nerve root complexes are intact. IMPRESSION: Atrophy and chronic microvascular ischemia. Chronic right mastoiditis. Reviewed, Interpreted and Dictated by Denilson Booth MD Transcribed by Evelina Krishnamurthy Authenticated by Denilson Booth MD on 01/12/2022 04:04:51 PM [facility]
== END ==
PROVIDERS: PCP Family Medicine; Visit Provider Family Medicine
DX: R42 Dizziness and giddiness (principal); N28.9 Disorder of kidney and ureter, unspecified
CPT/HCPCS: 70551; 76770

== ENCOUNTER → 2022-01-18 07:12 | Outpatient (CLI) | payer MEDICARE, SELFPAY ==
--- NOTE | 2022-01-18 07:15 | CT_ITS ---
FINAL REPORT CLINICAL HISTORY: LEFT HYDRONEPHROSIS COMPARISON: Ultrasound dated January 12, 2022 FINDINGS: Axial CT images of the abdomen and pelvis were obtained without intravenous contrast. Coronal reformatted images were also obtained.This study was performed with techniques to keep radiation doses as low as reasonably achievable (ALARA). Individualized dose reduction techniques using automated exposure control or adjustment of mA and/or kV according to the patient's size were employed. Abdomen: The lung bases are clear. There are multiple bilateral nonobstructing renal stones measuring up to 5 mm on the right and 4 mm on the left. There is mild left hydronephrosis. There is evidence of cholecystectomy. The liver, spleen and pancreas have an unremarkable, unenhanced appearance. Mild bilateral adrenal gland enlargement could represent adenomas or hyperplasia. Pelvis: Images of the pelvis reveal no evidence of ureteral dilation or ureteral stone. There is been hysterectomy. There is diverticulosis of the sigmoid colon. IMPRESSION: Bilateral nonobstructing renal stones. Mild left hydronephrosis. Reviewed, Interpreted and Dictated by Gasper Crane III, MD Transcribed by Ravinder Randolph Authenticated by Gasper Crane III, MD on 01/18/2022 08:06:31 AM [facility]
== END ==
PROVIDERS: PCP Family Medicine; Visit Provider Family Medicine
DX: N13.30 Unspecified hydronephrosis (principal)
CPT/HCPCS: 74176

== ENCOUNTER → 2023-06-04 10:53 | Outpatient (CLI) | payer MEDICARE, SELFPAY ==
--- NOTE | 2023-06-04 11:01 | XR_ITS ---
FINAL REPORT CLINICAL HISTORY: ACUTE PAIN FINDINGS: AP, lateral and oblique views of the right knee were obtained. There is no prior exam for comparison. There is no acute osseous abnormality of the right knee. There is degenerative joint disease most pronounced at the patellofemoral compartment. The soft tissues are normal. There is no joint effusion. IMPRESSION: Degenerative joint disease without acute abnormality. Reviewed, Interpreted and Dictated by Rosalba Batres MD Transcribed by Ann Joe Authenticated and [facility]
== END ==
PROVIDERS: PCP Family Medicine; Visit Provider Family Medicine
DX: M25.561 Pain in right knee (principal)
CPT/HCPCS: 73562

== ENCOUNTER 2023-07-12 09:00 | Outpatient (RCR) | payer MEDICARE, SELFPAY ==
--- NOTE | 2023-06-22 11:08 | HMH.PTOPEV ---
PT Outpatient Evaluation Rehab PT Outpatient Evaluation Start: 06/22/23 09:49 Freq: Status: Active Protocol: Document 06/22/23 09:49 JULITA (Rec: 06/22/23 11:08 MARGUERITETRICIA [id number]) E-signed By Cecilia De Los Santos, PT Outpatient Therapy Subjective History Subjective History Pt presents to the PT clinic with reports of R knee pain. Pt reports she had a fall 2-3 years ago, pt reports that she had injections in her knee. Pt reports that she had temporary relief following that. Pt reports that she has been feeling R knee pain for a few months. Pt denies reports of recent falls or injury to her R knee. Pt reports that she feels R knee pain after she has been up/ moving around . Pt reports she has been using her cane for ~2 years. Pt reports that she feels pain in the front of her knee after being on it. Pt reports that she also knee pain first thing in the morning. PMH: macular degeneration Chief Complaint Pain,Stiff,Swelling,Weakness Symptom Type Ache Symptoms Relieved By OTC Meds Symptoms Aggravated By Standing,Bending/Stooping, Physical Activity,Twisting, Walking,Lifting Prior Functional Limitations None Current Functional Limitations Lifting,Housework,Driving, Standing,Sitting,Squatting, Recreation Activity,Walking, Stairs,Balance,Bending/ Stooping Level of pain today (0-10) 3 Pain scale - at its best (0-10) 0 Pain scale - at its worst (0-10) 5 Hip/Knee Eval Gait Observation General Gait Pattern Observation Antalgic Gait,Wide Based Gait Assistive Device Assistive Devices Straight Cane Palpation Tenderness right Knee Palpation Finding Tenderness Knee Palpation Overall Comment TTP throughout medial/lateral and anterior aspect of knee MMT Hip Flexion Strength Grade 4 Good Hip Abduction Strength Grade 4 Good Hip Adduction Strength Grade 4 Good Knee Extension Strength Grade 4- Good- Knee Flexion Strength Grade 4- Good- ROM Knee Extension Active Range of Motion ( 0 degrees) Knee Extension Passive Range of Motion ( 130 degrees) Knee ROM Limitations Muscle Weakness,Pain Sensation Comment Sensation to light touch grossly WNL throughout RLE Effusion joint effusion knee exam standard right Mid - Patellar Circumerential Measure ( 43 cm) Special Tests Knee Pivot Shift Test Negative Right Knee Posterior Sag ([place] Drawer) Test Negative Right Knee Valgus Stress Test Negative Right Knee Varus Stress Test Negative Right Patella Apprehension Test Negative Right Outpatient Therapy Assessment Impairments Problems/Impairmments Palpation Tenderness,Impaired Range of Motion,Impaired Strength,Impaired Transfers, Impaired Gait Pattern,Impaired Walking,Impaired Standing, Impaired Sitting,Impaired Driving,Impaired Lifting, Impaired Household Care, Impaired Stair Climbing, Impaired Incline Stepping, Impaired Squatting,Impaired Bending,Subjective C/O Pain, Impaired Self Care/Self Management Prognosis Rehab Potential Fair Clinical Impression Consistent with Diagnosis Yes Short Term Goals Number of Weeks 2 Increase Range of Motion Yes: Improve R knee flexion by 5* Increase Strength Yes: Improve RLE gross MMT by 1/2 grade Decrease Subjective C/O Pain Yes: Decrease R knee pain to < 4/10 with standing/walking activity. Patient to be Ind w/ HEP Yes Dock Grader Goals Number of Weeks 6 Increase Range of Motion Yes: Improve R knee AROM to WNL Increase Strength Yes: Improve R knee MMT grossly 5/5 Improve Gait Pattern with Assistive Yes: No antalagic gait pattern Device with use of SPC Increase Ability to Walk Yes: For 20 minutes with less than 3/10 R knee pain Increase Ability to Stand Yes: For 20 minutes with less than 3/10 R knee pain Decrease Subjective C/O Pain Yes: Decrease R knee pain to less than 2/10 during standing /walking activities. Improve Self Care/Self Management Yes Patient to be Ind w/ Advanced HEP Yes Outpatient Therapy Plan of Care Treatment Plan May Include Therapeutic Exercise Including Home Yes Exercise Program Manual Therapy Techniques Yes Neuromuscular Re-education Yes Therapeutic Activities to Return to Yes Previous Functional/Work Level Gait Training Yes ADL/Self Care Education Yes Dry Needling Yes Thermal Modalities Yes Electrical Stimulation Yes Ultrasound/Phonophoresis Yes Iontophoresis Yes Parrafin Yes Orthotics/Bracing/Splinting Yes Vasopneumatic Compression Pump Yes Massage Yes Manual Lymphatic Drainage Yes Group Therapy for Medicare Yes Eval/Re-Eval Yes Aquatic Therapy Yes Frequency Times per week 2 Duration Number of Weeks 6 Addendums This patient is a candidate for social No or vocational rehab? Patient/Guardian verbally acknowledges Yes understanding of treatment program and consents to further treatment? Patient/Guardian verbally acknowledges Yes understanding of diagnosis, prognosis and goals for treatment? G -code Required No Eval Complexity PT Charges 12548 - Low Complexity Shoulder/Elbow Eval Shoulder Objective Measurements Elbow Objective Measurements PHYSICIAN CERTIFICATION: I certify the specified therapy services for Batsheva L Ecklar are required, authorized, and reviewed every 30 days.
== END 2023-07-12 10:00 | disposition home or self-care (01) ==
LOC: PT 09:00
PROVIDERS: PCP Family Medicine; Visit Provider Family Medicine
DX: M25.561 Pain in right knee (principal)
CPT/HCPCS: 97014; 97110; 97163; G0283

== ENCOUNTER 2023-11-18 10:33 | Emergency (ER) | payer MEDICARE, SELFPAY ==
--- NOTE | 2023-11-18 10:38 | XR_ITS ---
PROCEDURE INFORMATION: Exam: XR Left Wrist Exam date and time: 11/18/2023 10:41 AM Age: 88 years old Clinical indication: Pain; Swelling; Hand and wrist; Left TECHNIQUE: Imaging protocol: Radiologic exam of the left wrist. Views: 3 or more views. COMPARISON: CR Hand L 11/18/2023 10:38 AM FINDINGS: Bones/joints: Query acute nondisplaced radial styloid fracture. Severe 1st CMC joint degenerative changes. Soft tissues: Normal. IMPRESSION: Query acute nondisplaced radial styloid fracture.
--- NOTE | 2023-11-18 10:38 | XR_ITS ---
PROCEDURE INFORMATION: Exam: XR Left Hand Exam date and time: 11/18/2023 10:38 AM Age: 88 years old Clinical indication: Pain; Swelling; Hand and wrist; Left TECHNIQUE: Imaging protocol: Radiologic exam of the left hand. Views: 3 or more views. COMPARISON: No relevant prior studies available. FINDINGS: Bones/joints: No acute fracture or malalignment. Severe 1st CMC joint degenerative changes. Severe 2nd and 3rd DIP joint degenerative changes. Moderate 4th and 5th DIP joint degenerative changes. Soft tissues: Normal. IMPRESSION: No acute fracture or malalignment.
--- NOTE | 2023-11-18 10:58 | EXP.UTC ---
Discharge Plan Disposition Patient Disposition: Home, Self-Care Condition: Good Prescriptions Prescriptions: No Action PreserVision AREDS-2 250-90-40-1 mg capsule 1 tab PO BID clotrimazole-betamethasone 1-0.05 % cream 1 applic TOPICAL BID Qty: 15 1RF pravastatin 40 mg tablet 40 mg PO DAILY 90 Days Qty: 90 Patient Comments: levothyroxine 50 mcg tablet 50 mcg PO DAILY 90 Days Qty: 90 Patient Comments: cholecalciferol (vitamin D3) 1,000 unit capsule 1,000 unit PO ONCE meloxicam 15 mg tablet 15 mg PO DAILY PRN (Reason: pain) Qty: 30 1RF losartan 50 mg tablet 50 mg PO DAILY Qty: 90 metolazone 2.5 mg tablet 2.5 mg PO DAILY tramadol 50 mg tablet 50 mg PO BID PRN (Reason: Pain (Scale Score 1-3)) Patient Comments: TAKE 1 TABLET BY MOUTH TWICE DAILY NEEDED duloxetine 30 mg capsule,delayed release(DR/EC) 30 mg PO DAILY Patient Comments: TAKE 1 CAPSULE BY MOUTH ONCE DAILY FOR ARTHRITIS PAIN Namzaric 14-10 mg capsule,sprinkle,ER 24hr 1 cap PO DAILY Referrals Follow up/Referrals: Roselyn Joel MD [Primary Care Provider] - See instructions Activity Restrictions/Add. Instructions Additional Instructions/Restrictions: Rest the extremity, apply ice for 15 minutes as tolerated three or four times per day, Elevate the extremity as tolerated while you are resting. Take tylenol for pain Follow up with your regular doctor on Sunday to let them recheck your wrist and your x-rays. GO TO THE ER FOR ANY WORSENING SYMPTOMS Clinical Impressions Clinical Impression: Distal radius fracture, left Instructions Patient Instructions: How to Take Care of Your Splint, DI for Distal Radius Fracture Discharge ED Provider: Carloz Bolton [facility] General Stated complaint: left hand and wrist swollen, no accident Time Seen by Provider: 11/18/23 10:57 History of Present Illness Provider Complaint: She states that she was pulling herself up out of the bath tub last night with her left hand when she felt a pop in her left wrist. Since then she has had left wrist pain, swelling and bruising. She denies other injury. Related Data Home Medications Medication Instructions Recorded Confirmed cholecalciferol (vitamin D3) 25 1,000 unit PO ONCE Supplement 12/04/17 10/24/22 mcg (1,000 unit) capsule levothyroxine 50 mcg tablet 50 mcg PO DAILY THYROID 90 days 12/04/17 11/18/23 #90 tabs pravastatin 40 mg tablet 40 mg PO DAILY Cholesterol 90 days 12/04/17 11/18/23 #90 tabs losartan 50 mg tablet 50 mg PO DAILY #90 tabs 10/23/19 11/18/23 vit C 250 mg-vit E 90 mg-zinc 40 1 tab PO BID 12/13/21 10/24/22 mg-copper 1 [id number] capsule (PreserVision AREDS-2) duloxetine 30 mg capsule,delayed 30 mg PO DAILY 11/18/23 11/18/23 release memantine ER 14 mg-donepezil 10 mg 1 cap PO DAILY 11/18/23 11/18/23 capsule sprinkle,ext.release 24 hr (Namzaric) metolazone 2.5 mg tablet 2.5 mg PO DAILY 11/18/23 11/18/23 tramadol 50 mg tablet 50 mg PO BID PRN Pain (Scale Score 11/18/23 11/18/23 1-3) Previous Rx's Medication Instructions Recorded meloxicam 15 mg tablet 15 mg PO DAILY PRN pain #30 tabs 12/03/18 clotrimazole-betamethasone 1 1 applic topical BID #15 grams 12/13/21 %-0.05 % topical cream Allergies Allergy/AdvReac Type Severity Reaction Status Date / Time No Known Allergies Allergy Verified 11/18/23 11:13 [facility] Disclaimer: The information contained in this section may have been updated after the patient was seen, as this information can be updated by other users. Medical History (Updated 11/18/23 @ 11:28 by Carloz Bolton APRN) Abnormal electrocardiography Benign positional vertigo Encounter for pre-operative examination Hyperlipidemia Hypertension Hypothyroidism Perforation of left tympanic membrane Vertigo Social History Smoking Status: Former smoker second hand exposure: No alcohol intake: never counseling provided: none substance use type: denies use current occupational status: retired Travel in the last 8 weeks: None household members: spouse housing: house current occupational exposures/hazards: No caffeine: Yes ROS Obtained: Yes All systems reviewed & no additional complaints except as documented Constitutional Constitutional: Denies chills and Denies fever(s) Eyes Eyes: Denies eye discharge ENT Ears, Nose, Mouth, and Throat: Denies dizziness, Denies otalgia and Denies sore throat Cardiovascular Cardiovascular: Denies chest pain Respiratory Respiratory: Denies shortness of breath, Denies chest congestion, Denies cough, Denies stridor and Denies wheezing Gastrointestinal Gastrointestingal: Denies nausea or vomiting Musculoskeletal Musculoskeletal: Reports as per HPI Integumentary/Breasts Skin/Breast: Denies rash Neurologic Neurologic: Denies dizziness and Denies paresthesias Allergic/Immunologic Allergic/Immunologic: Denies wheezing Physical Exam General General appearance: alert and in no apparent distress Head Head exam: atraumatic, normocephalic and normal inspection Eye Eye exam: Present normal appearance, PERRL and EOMI ENT ENT exam: Present normal exam, normal oropharynx, mucous membranes moist, TM's normal bilaterally and normal external ear exam Neck Neck exam: Present normal inspection, full ROM and trachea midline; Absent meningismus or lymphadenopathy Chest Chest inspection: Present normal inspection and symmetric chest wall rise; Absent tenderness Respiratory Respiratory exam: Present normal lung sounds bilaterally; Absent respiratory distress Cardiovascular Cardiovascular exam: Present regular rate and normal rhythm; Absent JVD Abdominal Exam Abdominal exam: Present soft and normal bowel sounds; Absent distention, tenderness or guarding Extremities Exam Extremities exam: Present normal capillary refill; Absent calf tenderness Expanded Upper Extremity Exam Left: Shoulder exam: Present normal inspection and full ROM; Absent tenderness Arm exam: Present normal inspection and full ROM; Absent tenderness Elbow exam: Present normal inspection and full ROM; Absent tenderness Forearm/Wrist exam: Present full ROM, tenderness, swelling and ecchymosis; Absent abrasion, laceration, deformity, crepitus, dislocation, erythema, tenderness over anatomical snuff box or pain with axial thumb loading Hand exam: Present normal inspection and full ROM; Absent tenderness Neuromotor exam: Normal wrist extension, thumb opposition, thumb IP flexion, thumb adduction and fingers 2-5 abduction Neurosensory exam: Normal radial nerve, ulnar nerve and median nerve Vascular exam: Normal capillary refill, radial pulse and ulnar pulse Back Exam Back exam: Present normal inspection; Absent tenderness Neurological Exam Neurological exam: Present alert and oriented X3 Psychiatric Psychiatric exam: Present normal affect and normal mood Skin Skin exam: Present warm, dry, intact and normal color Lymphatic Lymphatic Findings: no adenopathy Medical Decision Making Medical Records Medical records reviewed: No I reviewed the patient's medical records. Tobi Inquiry Pt receiving controlled substance: No Orders (Tests/Meds): ORDERS Category Date Time Status Hand XR left minimum 3 views [XR hand LT min 3V] Stat Exams 11/18/23 10:38 Ordered XR wrist LT min 3V Stat Exams 11/18/23 10:38 Ordered Radiology Data #1: Image(s): Wrist Image Reviewed: Yes I reviewed the patient's radiology image and Yes I have reviewed radiologist's interpretation Preliminary Findings: Abnormal PROCEDURE INFORMATION: Exam: XR Left Wrist Exam date and time: 11/18/2023 10:41 AM Age: 88 years old Clinical indication: Pain; Swelling; Hand and wrist; Left TECHNIQUE: Imaging protocol: Radiologic exam of the left wrist. Views: 3 or more views. COMPARISON: CR Hand L 11/18/2023 10:38 AM FINDINGS: Bones/joints: Query acute nondisplaced radial styloid fracture. Severe 1st CMC joint degenerative changes. Soft tissues: Normal. IMPRESSION: Query acute nondisplaced radial styloid fracture. #2: Image(s): Hand Image Reviewed: Yes I reviewed the patient's radiology image and Yes I have reviewed radiologist's interpretation Preliminary Findings: No Fracture Seen PROCEDURE INFORMATION: Exam: XR Left Hand Exam date and time: 11/18/2023 11:04 AM Age: 37 years old Clinical indication: Injury or trauma; Other: Foreign object in L 3rd distal phalanx, anterior; Additional info: Pain in middle finger TECHNIQUE: Imaging protocol: Radiologic exam of the left hand. Views: 3 or more views. COMPARISON: No relevant prior studies available. FINDINGS: Bones/joints: No acute fracture or malalignment. Joint spaces are maintained. Soft tissues: No radiopaque foreign bodies are seen. IMPRESSION: No acute fracture or malalignment. No radiopaque foreign bodies are seen. Procedures Risk/Benefits of Procedure(s) Were Explained: Yes Orthopedic Splinting/Casting Injury #1: Side: left Upper Extremity Injury Location: forearm, wrist and hand Upper Extremity Immobilizer: posterior splint Post Cast/Splinting Neuro Status: intact and no change Post Cast/Splinting Vasc Status: intact and no change
[2023-11-18 11:00] VITALS: BP 161/89; PULSE 86; RESP 19; TEMP 36.8; O2SAT 99; BMI 23.3
[2023-11-18 11:41] VITALS: BP 161/89; PULSE 86; RESP 18; TEMP 36.8; O2SAT 99
--- NOTE | 2023-11-18 11:43 | PC.NURSE ---
Placed orthoglass splint from mid fore arm to knuckle on left hand.
== END 2023-11-18 11:41 | disposition home or self-care (01) ==
PROVIDERS: Emergency Provider Nurse Practitioner Family; PCP Family Medicine
DX: S52.502A Unspecified fracture of the lower end of left radius, initial encounter for closed fracture (principal); E03.9 Hypothyroidism, unspecified; E78.5 Hyperlipidemia, unspecified; I10 Essential (primary) hypertension; Z87.891 Personal history of nicotine dependence; W18.2XXA Fall in (into) shower or empty bathtub, initial encounter
CPT/HCPCS: 73110; 73130; 99204; 99212; G0463

== ENCOUNTER 2023-11-29 13:31 | Outpatient (RCR) | payer MEDICARE, SELFPAY | END 2023-11-29 14:30 | disposition home or self-care (01) | LOC: OT 13:31 | PROVIDERS: Visit Provider Orthopaedic Surgery | DX: M25.532 Pain in left wrist (principal); S52.502A Unspecified fracture of the lower end of left radius, initial encounter for closed fracture | CPT/HCPCS: 97763 ==

== ENCOUNTER 2023-12-20 09:35 | Outpatient (CLI) | payer MEDICARE, SELFPAY ==
--- NOTE | 2023-12-20 09:41 | XR_ITS ---
FINAL REPORT CLINICAL HISTORY: right wrist pain FINDINGS: RIGHT WRIST THREE VIEW FINDINGS: Three views show no evidence of an acute, displaced fracture or dislocation of the visualized bony architecture. There is mild degenerative change of the lateral carpus, with moderate to severe degenerative change of the first carpometacarpal articulation. There is mild widening of the scapholunate interval, that may represent ligamentous injury. IMPRESSION: Mild degenerative change in the lateral carpus with moderate to severe degenerative change of the first CMC joint as described. Mild widening of the scapholunate interval, possibly related to ligamentous injury of uncertain chronicity. Reviewed, Interpreted and Dictated by Roselyn Thomas MD Transcribed by Kayli Hodges Authenticated and [facility]
--- NOTE | 2023-12-20 09:41 | XR_ITS ---
FINAL REPORT CLINICAL HISTORY: Left wrist pain, fx COMPARISON: None FINDINGS: LEFT WRIST THREE VIEW FINDINGS: Three views show no evidence of an acute, displaced fracture or dislocation of the visualized bony architecture. There is moderate degenerative change involving the first CMC joint, as well as the lateral carpus. There is mild widening of the scapholunate interval, suggesting ligamentous abnormality. IMPRESSION: Degenerative change as described. Widening of the scapholunate interval worrisome for ligamentous injury. Reviewed, Interpreted and Dictated by Roselyn Thomas MD Transcribed by Kayli Hodges Authenticated and [facility]
== END 2023-12-20 23:59 ==
LOC: RAD 09:36
PROVIDERS: PCP Family Medicine; Visit Provider Orthopaedic Surgery
DX: S62.101A Fracture of unspecified carpal bone, right wrist, initial encounter for closed fracture (principal); S52.502A Unspecified fracture of the lower end of left radius, initial encounter for closed fracture; M25.531 Pain in right wrist; M25.532 Pain in left wrist
CPT/HCPCS: 73110

== ENCOUNTER 2024-03-19 09:51 | Outpatient (POV) | payer MEDICARE, SELFPAY ==
[2024-03-19 10:04] VITALS: BP 125/89; PULSE 88; RESP 18; TEMP 36.7; O2SAT 97; BMI 23.3
--- NOTE | 2024-03-19 11:23 | EXP.PAIN.OV ---
HPI Data of Consult Patient: new to practice Consult date: 03/19/24 Requesting Physician: Valarie Vergara APRN Primary Care Provider: Roselyn Joel MD Consult Narrative Reason for consult: Right knee pain History of present illness: Ms. Keane is a 88 year old female who presents today as a new patient. She is a referral from Dr. Dion Vergara's office. Today she rates her pain a 6 out of 10. Patient states all of her pain is related to her right knee. Patient states this is been going on for years related to a fall that initially started this issue. Patient states that it is a constant aching sensation that is worse with increased activity or ambulation. Patient states that she does constantly experience swelling into this joint. Patient has tried [id number] medications along with heat and ice and topicals with minimal relief. Patient has had physical therapy and went 1 time however it caused worsening pain and she never went back. Patient has been given steroid injections as well as gel injections with no additional improvement. Patient denies any recent advanced imaging. Patient has been tried on tramadol in the past. Her Toib has been reviewed and is appropriate. CC: Valarie Vergara APRN [facility] Disclaimer: The information contained in this section may have been updated after the patient was seen, as this information can be updated by other users. Medical History Benign positional vertigo Perforation of left tympanic membrane Vertigo Encounter for pre-operative examination Abnormal electrocardiography Hyperlipidemia Hypertension Hypothyroidism Family History (Updated 03/19/24 @ 10:04 by Stefany Cool RN) Other No significant family history Social History (Updated 03/19/24 @ 10:04 by Stefany Cool RN) Smoking Status: Former smoker second hand exposure: No alcohol intake: never counseling provided: none substance use type: denies use current occupational status: retired Travel in the last 8 weeks: None household members: spouse housing: house current occupational exposures/hazards: No caffeine: Yes Review of Systems Review of Systems Review of systems:: pertinent systems reviewed and negative unless documented below Review of systems (narrative): Review of Systems: General: No recent weight changes, no fever, no sleep disturbances Respiratory: No cough, no shortness of air, no recurring pulmonary infections Cardiovascular/peripheral vascular: No chest pain, no palpitations, no edema, no shortness of breath Gastrointestinal: No new onset incontinence, normal bowel movements reported Genitourinary: No new onset incontinence Musculoskeletal: Right knee pain Psychiatric: [Normal mood/affect] Neurological: [Denies weakness in extremities], [denies balance issues] Meds Home Medications and Allergies Home Medications Medication Instructions Recorded Confirmed Type cholecalciferol (vitamin D3) 25 1,000 unit PO ONCE Supplement 12/04/17 02/14/24 History mcg (1,000 unit) capsule levothyroxine 50 mcg tablet 50 mcg PO DAILY THYROID 90 days 12/04/17 02/14/24 History #90 tabs pravastatin 40 mg tablet 40 mg PO DAILY Cholesterol 90 days 12/04/17 02/14/24 History #90 tabs meloxicam 15 mg tablet 15 mg PO DAILY PRN pain #30 tabs 12/03/18 02/14/24 Rx losartan 50 mg tablet 50 mg PO DAILY #90 tabs 10/23/19 02/14/24 History clotrimazole-betamethasone 1 1 applic topical BID #15 grams 12/13/21 02/14/24 Rx %-0.05 % topical cream vit C 250 mg-vit E 90 mg-zinc 40 1 tab PO BID 12/13/21 02/14/24 History mg-copper 1 [id number] capsule (PreserVision AREDS-2) duloxetine 30 mg capsule,delayed 30 mg PO DAILY 11/18/23 02/14/24 History release memantine ER 14 mg-donepezil 10 mg 1 cap PO DAILY 11/18/23 02/14/24 History capsule sprinkle,ext.release 24 hr (Namzaric) metolazone 2.5 mg tablet 2.5 mg PO DAILY 11/18/23 02/14/24 History tramadol 50 mg tablet 50 mg PO BID PRN Pain (Scale Score 11/18/23 02/14/24 History 1-3) New Prescriptions to Start Prescriptions: Allergies Allergy/AdvReac Type Severity Reaction Status Date / Time No Known Allergies Allergy Verified 02/14/24 09:10 Objective Vital signs: Temp Pulse Resp BP Pulse Ox O2 Del Method 98.0 F 88 18 125/89 97 Room Air 03/19/24 10:04 03/19/24 10:04 03/19/24 10:03/19/24 10:03/19/24 10:03/19/24 10:04 Narrative: Physical Exam: General: Alert and oriented x3, no acute distress, pleasant and cooperative Lungs: Respirations even and unlabored, symmetrical chest expansion Eyes: PERRL Musculoskeletal: Flexion and extension of right knee [spine] somewhat guarded secondary to pain, [antalgic gait noted] mild swelling noted proximal to the patella Neurological: Speech clear, no gross sensory deficit Additional findings Additional findings: FINDINGS: AP, lateral and oblique views of the right knee were obtained. There is no prior exam for comparison. There is no acute osseous abnormality of the right knee. There is degenerative joint disease most pronounced at the patellofemoral compartment. The soft tissues are normal. There is no joint effusion. IMPRESSION: Degenerative joint disease without acute abnormality. Reviewed, Interpreted and Dictated by Rosalba Batres MD Transcribed by Ann Joe Authenticated and [facility] Assessment and Plan *Assessment and plan (1) Osteoarthritis of right knee: Status: Acute Qualifiers: Osteoarthritis type: primary Qualified Code(s): M17.11 - Unilateral primary osteoarthritis, right knee Category: Medical Code(s): M17.11 - Unilateral primary osteoarthritis, right knee (2) Right knee pain: Status: Acute Qualifiers: Chronicity: chronic Qualified Code(s): M25.561 - Pain in right knee; G89.29 - Other chronic pain Category: Medical Code(s): M25.561 - Pain in right knee Plan Patient is experiencing significant pain and swelling in her right knee with limited range of motion. I discussed with the patient that I will order her compounded cream and that we will also order advanced imaging of an MRI without contrast of this joint. I have discussed with the patient in future she may benefit from additional injection therapy however we will wait and see what her imaging reveals before proceeding forward. Patient and did mention a nonhealing area of her right lower ankle. I have discussed with the patient that it would be very beneficial to discuss with her primary care provider. However I have recommended that the patient could always try to clean it with Betadine and use Neosporin or bacitracin. I did discuss with the patient to leave it open to air when she is at home and that she can elevate this extremity. Patient and spouse to state that this has been going on for some time. I have discussed with the patient that it may be beneficial to talk to their PCP about even wound care management if it does not get any better or gets deeper affecting more tissue. Patient acknowledges understanding and agrees with this plan of care. Patient will return to clinic in 1 month for reevaluation of symptoms and plan of care. Patient has been instructed to contact the clinic with any concerns before the next appointment. Dr. Lagunas has reviewed this note and agrees with this plan of care. This note was dictated using voice recognition software and make contain errors or omissions.
== END 2024-03-19 23:59 | disposition home or self-care (01) ==
LOC: SC.PAIN 09:52
PROVIDERS: PCP Family Medicine; Visit Provider Nurse Practitioner Family
DX: M17.11 Unilateral primary osteoarthritis, right knee (principal); M25.561 Pain in right knee; G89.29 Other chronic pain
CPT/HCPCS: 99202; G0463

== ENCOUNTER 2024-03-31 15:42 | Outpatient (CLI) | payer MEDICARE, SELFPAY ==
--- NOTE | 2024-03-31 15:49 | MR_ITS ---
FINAL REPORT CLINICAL HISTORY: KNEE PAIN FINDINGS: Multiplanar MR imaging of the right knee was performed without contrast. The medial meniscus appears intact. There is some irregularity of the posterior horn of the lateral meniscus worrisome for a tear. The anterior and posterior cruciate ligaments are intact. The medial collateral ligament and lateral ligamentous complex are intact. The patellar and quadriceps tendons are intact. There is no evidence of fracture. Severe patellofemoral chondromalacia is noted. A small joint effusion is seen. The musculature is intact. No soft tissue mass or cyst is identified. IMPRESSION: Findings worrisome for a small tear of the posterior horn of the lateral meniscus. Severe patellofemoral chondromalacia. Authenticated and [facility]
== END 2024-03-31 23:59 | disposition home or self-care (01) ==
LOC: RAD 15:42
PROVIDERS: PCP Family Medicine; Visit Provider Nurse Practitioner Family
DX: M25.561 Pain in right knee (principal)
CPT/HCPCS: 73721

== ENCOUNTER 2024-04-21 09:40 | Outpatient (POV) | payer MEDICARE, SELFPAY ==
[2024-04-21 09:47] VITALS: BP 137/65; PULSE 74; RESP 18; O2SAT 98; BMI 23.5
--- NOTE | 2024-04-21 10:00 | EXP.PAIN.SOA ---
[facility] Pain Management SOAP Note Subjective:: Patient is a pleasant 88-year-old female who presents today for follow-up of right knee MRI. Today she rates her pain an 8 out of 10. Patient denies any new trauma or injury. She states she still continues to have chronic pain through her right knee and describes it as a constant aching sensation that is worse with increased activity or ambulation. Patient does state the pain interferes with her ability perform activities of daily living such as cooking or cleaning or even simple ambulation. Patient has been to see Dr. Vergara here at [facility] who did send her over to our office for possible injection therapy. Patient states that she did have 1 injection up in [place] however they did the injection to the sides of her knee and felt like this did not really work as well. Patient is interested in any help we may be able to try. Patient has tried [id number] medications such as Tylenol along with prescribed tramadol, heat and ice and topicals. Patient did recently tried to do physical therapy within the last 6 months however was unable to complete due to worsening right knee pain. Her Tobi has been reviewed and is appropriate. Review of Systems: General: No recent weight changes, no fever, no sleep disturbances Respiratory: No cough, no shortness of air, no recurring pulmonary infections Cardiovascular/peripheral vascular: No chest pain, no palpitations, no edema, no shortness of breath Gastrointestinal: No new onset incontinence, normal bowel movements reported Genitourinary: No new onset incontinence Musculoskeletal: Right knee pain Psychiatric: [Normal mood/affect] Neurological: [Denies weakness in extremities], [denies balance issues] Objective:: Physical Exam: General: Alert and oriented x3, no acute distress, pleasant and cooperative Lungs: Respirations even and unlabored, symmetrical chest expansion Eyes: PERRL Musculoskeletal: Flexion and extension of right knee [spine] somewhat guarded secondary to pain, [antalgic gait noted] Neurological: Speech clear, no gross sensory deficit Assessment:: Right knee pain, right knee osteoarthritis, severe patellofemoral chondromalacia right knee Plan:: Patient is experiencing significant pain throughout her right knee. Patient did have limited range of motion. I have discussed with the patient that I do think it would be beneficial to try a right knee intra-articular injection. Risk and benefits were discussed with patient and she would like to proceed forward with this plan of care. Patient has gotten her compounded cream and is using it however she states that she has not noticed significant improvement overall. Patient has tried and failed conservative therapy including recent physical therapy that she was unable to complete due to worsening pain. Patient has continued to do at home exercising and stretching however has made no change in her overall pain symptoms. Patient will be scheduled for a right intra-articular knee injection. Patient has been instructed to contact the clinic with any concerns before the next appointment. Dr. Lagunas has reviewed this note and agrees with this plan of care. This note was dictated using voice recognition software and make contain errors or omissions. [facility] Disclaimer: The information contained in this section may have been updated after the patient was seen, as this information can be updated by other users. Medical History Benign positional vertigo Perforation of left tympanic membrane Vertigo Encounter for pre-operative examination Abnormal electrocardiography Hyperlipidemia Hypertension Hypothyroidism Family History Other No significant family history Social History Smoking Status: Former smoker second hand exposure: No alcohol intake: never counseling provided: none substance use type: denies use current occupational status: other Travel in the last 8 weeks: None household members: spouse housing: house current occupational exposures/hazards: No caffeine: Yes
== END 2024-04-21 23:59 | disposition home or self-care (01) ==
LOC: SC.PAIN 09:41
PROVIDERS: Visit Provider Nurse Practitioner Family
DX: M17.11 Unilateral primary osteoarthritis, right knee (principal); M25.561 Pain in right knee; G89.29 Other chronic pain; M22.41 Chondromalacia patellae, right knee
CPT/HCPCS: 99212; G0463

== ENCOUNTER 2024-05-06 10:34 | Day surgery (SDC) | payer MEDICARE, SELFPAY ==
[2024-05-06 11:00] VITALS: BP 147/67; PULSE 89; RESP 18; TEMP 36.6; O2SAT 98; BMI 23.5
[2024-05-06] MEDS: LIDOCAINE 1% 5ML PF VIAL 5 ML (11:00)
[2024-05-06] MEDS: BUPIVACAINE 0.25% 10ML INJ 25 MG IJ (11:01)
--- NOTE | 2024-05-06 11:08 | EXP.PAIN.PRO ---
Procedure Date: 05/06/24 Time: 10:50 Anesthesiologist:: Manish Murillo CRNA Complications:: None Pre-procedure Diagnosis:: DJD right knee. Chronic right knee pain. Post-procedure Diagnosis:: Same. Indications for Procedure:: Patient very pleasant 88-year-old female comes our clinic today for a right intra-articular knee injection of cortisone. Patient reports right knee pain is constant, dull, aching. Right knee appears to have a small amount of effusion. I discussed the injection with the patient in detail. She wishes to proceed. She rates her right knee pain 10/10. Procedure Details:: Details of the procedure explained to the patient. The patient taken procedure and placed in sitting position. The right knee was prepped with chlorhexidine. Using the lateral condylar fossa the right knee joint was accessed with ease with a 22-gauge 1-1/2 inch needle. 40 mg of Depo-Medrol +3 cc of 1% lidocaine and 3 cc 0.25% Marcaine was injected. Patient tolerated procedure without difficulty. No complications. Plan and Disposition:: Patient was discharged without incident.
[2024-05-06 11:12] VITALS: BP 137/64; PULSE 80; RESP 18; O2SAT 98
== END 2024-05-06 11:14 | disposition home or self-care (01) ==
PROVIDERS: PCP Family Medicine; Visit Provider Nurse Anesthetist, Certified Registered
DX: M17.11 Unilateral primary osteoarthritis, right knee (principal); M25.561 Pain in right knee; G89.29 Other chronic pain
CPT/HCPCS: 20610; J1010

== ENCOUNTER 2024-06-02 14:12 | Outpatient (POV) | payer MEDICARE, SELFPAY ==
[2024-06-02 14:54] VITALS: BP 139/68; PULSE 78; RESP 16; O2SAT 96; BMI 21.1
--- NOTE | 2024-06-02 15:32 | EXP.PAIN.SOA ---
[facility] Disclaimer: The information contained in this section may have been updated after the patient was seen, as this information can be updated by other users. Medical History Benign positional vertigo Perforation of left tympanic membrane Vertigo Encounter for pre-operative examination Abnormal electrocardiography Hyperlipidemia Hypertension Hypothyroidism Family History Other No significant family history Social History Smoking Status: Former smoker second hand exposure: No alcohol intake: never counseling provided: none substance use type: denies use current occupational status: retired Travel in the last 8 weeks: None household members: spouse housing: house current occupational exposures/hazards: No caffeine: Yes PM Subjective & Objective Subjective Subjective:: Patient is a pleasant 88-year-old female who presents today for follow-up of right intra-articular knee injection on 05/06/2024. Today she rates her pain a 8 out of 10. Patient denies any new trauma or injury. She does state that she really did not notice significant relief with this injection. She states she continues to have significant pain throughout the right knee and that it does interfere with her ability perform activities of daily living such as cooking and cleaning. Patient has been tried on gel injections in the past along with tramadol, heat and ice and topicals with no additional relief. Patient states the pain is interfering with her to even sleep. She states the pain is constant and that she cannot tolerate any activity due to this. Her Tobi has been reviewed and is appropriate. Review of Systems: General: No recent weight changes, no fever, no sleep disturbances Respiratory: No cough, no shortness of air, no recurring pulmonary infections Cardiovascular/peripheral vascular: No chest pain, no palpitations, no edema, no shortness of breath Gastrointestinal: No new onset incontinence, normal bowel movements reported Genitourinary: No new onset incontinence Musculoskeletal: Right knee pain Psychiatric: [Normal mood/affect] Neurological: [Denies weakness in extremities], [denies balance issues] Pain at rest (0-10 scale): 8 Objective Objective:: Physical Exam: General: Alert and oriented x3, no acute distress, pleasant and cooperative Lungs: Respirations even and unlabored, symmetrical chest expansion Eyes: PERRL Musculoskeletal: Flexion and extension of right knee somewhat guarded secondary to pain, [antalgic gait noted] Neurological: Speech clear, no gross sensory deficit Has patient had previous pain injection?: Yes Percent improvement in pain since last injection: 25% Conservative treatment options previously tried: Home exercise plan Length of treatment: Longer than 6 weeks Meds Home Medications and Allergies Home Medications Medication Instructions Recorded Confirmed Type cholecalciferol (vitamin D3) 25 1,000 unit PO ONCE Supplement 12/04/17 06/02/24 History mcg (1,000 unit) capsule levothyroxine 50 mcg tablet 50 mcg PO DAILY THYROID 90 days 12/04/17 06/02/24 History #90 tabs pravastatin 40 mg tablet 40 mg PO DAILY Cholesterol 90 days 12/04/17 06/02/24 History #90 tabs meloxicam 15 mg tablet 15 mg PO DAILY PRN pain #30 tabs 12/03/18 06/02/24 Rx losartan 50 mg tablet 50 mg PO DAILY #90 tabs 10/23/19 06/02/24 History clotrimazole-betamethasone 1 1 applic topical BID #15 grams 12/13/21 06/02/24 Rx %-0.05 % topical cream vit C 250 mg-vit E 90 mg-zinc 40 1 tab PO BID 12/13/21 06/02/24 History mg-copper 1 [id number] capsule (PreserVision AREDS-2) duloxetine 30 mg capsule,delayed 30 mg PO DAILY 11/18/23 06/02/24 History release memantine ER 14 mg-donepezil 10 mg 1 cap PO DAILY 11/18/23 06/02/24 History capsule sprinkle,ext.release 24 hr (Namzaric) metolazone 2.5 mg tablet 2.5 mg PO DAILY 11/18/23 06/02/24 History tramadol 50 mg tablet 50 mg PO BID PRN Pain (Scale Score 11/18/23 06/02/24 History 1-3) New Prescriptions to Start Prescriptions: Allergies Allergy/AdvReac Type Severity Reaction Status Date / Time No Known Allergies Allergy Verified 05/06/24 11:02 Assessment and Plan *Assessment and plan (1) Right knee pain: Status: Acute Qualifiers: Chronicity: chronic Qualified Code(s): M25.561 - Pain in right knee; G89.29 - Other chronic pain Category: Medical Code(s): M25.561 - Pain in right knee (2) Osteoarthritis of right knee: Status: Acute Qualifiers: Osteoarthritis type: primary Qualified Code(s): M17.11 - Unilateral primary osteoarthritis, right knee Category: Medical Code(s): M17.11 - Unilateral primary osteoarthritis, right knee Plan I did review over with the patient prior imaging results that did have a lateral meniscus tear. I have discussed with the patient at length that she may benefit from genicular nerve block. Risk and benefits were discussed with the patient and she would like to proceed forward with this plan of care. I have counseled the patient that this injection may not be covered by insurance however they have stated that they are willing to pay out right without insurance if it is not due to the worsening pain. I will also send in a prescription of tizanidine 4 mg at bedtime and provide a 2-week supply of this medication. Patient has tried and failed conservative therapy including continued at home stretching and exercise for longer than 6 weeks. Patient will be submitted for a genicular nerve block of the right knee under fluoroscopy. Patient has been instructed to contact the clinic with any concerns before the next appointment. Dr. Lagunas has reviewed this note and agrees with this plan of care. This note was dictated using voice recognition software and make contain errors or omissions.
== END 2024-06-02 23:59 | disposition home or self-care (01) ==
PROVIDERS: PCP Family Medicine; Visit Provider Nurse Practitioner Family
DX: M25.561 Pain in right knee (principal); G89.29 Other chronic pain; M17.11 Unilateral primary osteoarthritis, right knee
CPT/HCPCS: 99212; G0463

== ENCOUNTER 2024-06-06 10:00 | Outpatient (RCR) | payer MEDICARE, SELFPAY ==
--- NOTE | 2024-04-03 10:53 | HMH.PTOPWND ---
Rehab Outpt Wound Evaluation Rehab OP Wound Evaluation Start: 04/03/24 10:02 Freq: Status: Active Protocol: Document 04/03/24 10:40 PHORNE (Rec: 04/03/24 10:52 PHORNE Laptop) E-signed By Hans Vadlez, PT Subjective/History History History This is the initial PT wound care eval for Batsheva Keane, 88 yowf who presents with c/o R lower leg wound x ~ 2 mos. She reports, My ran the sweeper into my leg and it made a big hole. She reports no pain, but is tender to palpation in the benito-wound skin. She reports no other significant co-morbidities at this time. Subjective Subjective Currently pain is 0/10. TTP is 2/4 in the benito-wound skin and wound bed. Mild, non- pitting edema noted throughout the R lower leg. New diagnosis of cancer in past 12 No months? Wound Eval Wound Right Lower Medial [place] Wound Type Avulsion Is This a Chronic Wound Yes Wound Length (cm) 1.4 Wound Width (cm) 1.2 Wound Depth (cm) 0.2 Wound Bed Appearance Yellow Percentage of Slough (%) 100 Wound Margins Description Well Defined Surrounding Tissue Appearance [place] Edema Type Non-Pitting Edema Degree 1+ Query Text:1+ Trace, Barely Detectable, Rebound 15-30 seconds 2+ Moderate, Slight Indentation, Rebound 10-20 seconds 3+ Deep, Deeper Indentation, Rebound > 30 seconds 4+ Very Deep, Rebound > 60 seconds Edema Appearance Puffy Drainage Description Yellow Drainage Amount Moderate Wound Topical Solution/Irrigant Saline Irrigant Primary Dressing Silver Dressing Comment opticell Ag Wound Secondary Dressing Type Composite,Gauze Roll/Wrap, Adhering Gauze Roll Comment optifoam gentle SA, kerlix, coban Wound Debridement Method Forceps,Gauze,Mechanical Wound Debridement Amount of Tissue Moderate Removed Wound Debridement Result Healthy Tissue Revealed,Yellow Sloughing Remains Dressing Change Patient Tolerance Tolerated Well Doll-Anaya Wound Assessment Tool Assessment Wound size 1=Length x Width <4 sq cm Wound depth 3=Full thickness skin loss involving damage or necrosis of Wound edges 3=Well-defined, not attached to wound base Wound undermining 1=None present Necrotic tissue type 3=Loosely adherent yellow slough Necrotic tissue amount 5=75% to 100% of wound covered Exudate type 5=Purulent: thin or thick, opaque, hein/yellow, withour without odor Exudate amount 4=Moderate Skin color surrounding wound 1=[place] or normal for ethnic group Peripheral tissue edema 3=Non-pitting edema extends > or= to 4 cm around wound Peripheral tissue induration 1=None present Granulation tissue 5=No granulation tissue present Epithelialization 5= < 25% wound covered Wound assessment total score 40 Wound Problems/Impairments Impairments Problems/Impairmments Palpation Tenderness,Impaired Strength,Impaired Endurance, Impaired Gait Pattern,Impaired Walking,Impaired Standing, Impaired Shower/Bathing, Impaired Household Care, Increased Edema,Wound Care Needs,Subjective C/O Pain, Impaired Self Care/Self Management Prognosis Rehab Potential Good Comment Pt will requires continued sharp, selective debridement of devitalized tissues and further dressing changes. Skilled therapy services are indicated to help her return to prior level of function. Clinical Impression Consistent with Diagnosis Yes Short Term Goals Number of Weeks 4 Decreased Palpation Tenderness Yes: 1/4 per-wound skin Decrease Wound Area Yes: by 25% Decrease Yellow/White Slough % Yes: by 100% Patient to Understand Lymphedema Yes Treatment and Exercises Intermediate Goals Number of Weeks 8 Decreased Palpation Tenderness Yes: 0/4 benito-wound skin Decrease Lymphedema Yes Decrease Wound Area Yes: by 75% Patient to be Ind w/ HEP Yes Patient to be Ind w/ Home Wound Care/ Yes Dressing Changes Patient to Adhere Lymphedema Precautions Yes Outpatient Therapy Plan of Care Treatment Plan May Include Therapeutic Exercise Including Home Yes Exercise Program Manual Therapy Techniques Yes Neuromuscular Re-education Yes Therapeutic Activities to Return to Yes Previous Functional/Work Level ADL/Self Care Education Yes Orthotics/Bracing/Splinting Yes Manual Lymphatic Drainage Yes Wound Care Yes Eval/Re-Eval Yes Frequency Times per week 1-2 Duration Number of Weeks 8 Addendums This patient is a candidate for social No or vocational rehab? Patient/Guardian verbally acknowledges Yes understanding of treatment program and consents to further treatment? Patient/Guardian verbally acknowledges Yes understanding of diagnosis, prognosis and goals for treatment? Eval Complexity PT Charges 33596 - High Complexity PHYSICIAN CERTIFICATION: I certify the specified therapy services for Batsheva Keane are required, authorized, and reviewed every 30 days.
--- NOTE | 2024-05-01 10:38 | HMH.RHREAS ---
Rehab Reassessment Rehab OP Re-assessment Start: 04/03/24 10:02 Freq: Status: Active Protocol: Document 05/01/24 10:32 MITZI (Rec: 05/01/24 10:38 PHORGILBERT [id number]) E-signed By Hans Valdez, PT Venu Wound Assessment Tool Assessment Wound size 1=Length x Width <4 sq cm Wound depth 2=Partial thickness skin loss involving epidermis &/or dermis Wound edges 2=Distinct, outline clearly visible, attached, even with wound base Wound undermining 1=None present Necrotic tissue type 1=Non visible Necrotic tissue amount 1=None visible Exudate type 3=Serosanguineous: thin, watery, pale red/pink Exudate amount 3=Small Skin color surrounding wound 2=Bright red &/or blanches to touch Peripheral tissue edema 4=Pitting edema extends <4 cm around wound Peripheral tissue induration 1=None present Granulation tissue 2=Bright, beefy red;75% to 100 % of wound filled &/or tissue overgrowth Epithelialization 4=25% to < 50% wound covered Wound assessment total score 27 Rehab Re-assessment Subjective Subjective Pt reports, I don't have any pain on my sherman, just my knee hurts from arthritis. She presents with prior dressing intact. Objective Objective Notes BWAT: 27 vs 40 on IE R sherman wound: L= 1.1 cm, W= 1. 0 cm, D= 0.1 cm. Wound SA is 35% healed vs IE. TTP: 0/4 to benito-wound skin. Assessment Progress Assessment Progressing as Expected Assessment Notes Wound is steadily decreasing in size and shows minimal necrotic tissue at this time. She continues to need skilled therapy services to return to prior level of function and reach full wound healing. Patient goals met ST LT6 Goals Not Met LT/6 Plan Plan Continue per initial POC. Frequency of Therapy 1 x/wk Duration of therapy 3-4 wks Time and Billing Re-Eval Time 10 Re-Eval Billing Units 0 PHYSICIAN CERTIFICATION: I certify the specified therapy services for Batsheva L Ecklar are required, authorized, and reviewed every 30 days.
--- NOTE | 2024-06-06 10:59 | HMH.RHREAS ---
Rehab Reassessment Rehab OP Re-assessment Start: 04/03/24 10:02 Freq: Status: Active Protocol: Document 06/06/24 10:57 MITZI (Rec: 06/06/24 10:59 MITZI [id number]) E-signed By Hans Valdez, PT Rehab Re-assessment Subjective Subjective Pt reports, I've been keeping a bandaid on it because it is winder tender if the sheets touch it when I go to bed. Otherwise no c/o at this time. Objective Objective Notes R sherman wound: L= 1.1 cm, W= 0. 8 cm, D= 0.1 cm. TTP: 0/4 to benito-wound skin. Assessment Progress Assessment Progressing as Expected Assessment Notes Wound is steadily decreasing in size and shows minimal necrotic tissue at this time. She continues to need skilled therapy services to return to prior level of function and reach full wound healing. Patient goals met ST/4 LT/6 Goals Not Met LT/6 Plan Plan Continue per initial POC. Frequency of Therapy 1 x/wk Duration of therapy 3-4 wks Time and Billing Re-Eval Time 10 Re-Eval Billing Units 0 PHYSICIAN CERTIFICATION: I certify the specified therapy services for Batsheva Keane are required, authorized, and reviewed every 30 days.
== END 2024-06-06 11:10 | disposition home or self-care (01) ==
LOC: PT 10:00
PROVIDERS: Visit Provider Family Medicine
DX: L97.912 Non-pressure chronic ulcer of unspecified part of right lower leg with fat layer exposed (principal)
CPT/HCPCS: 97140; 97163; 97164; 97597

== ENCOUNTER 2024-06-10 13:08 | Day surgery (SDC) | payer MEDICARE, SELFPAY ==
[2024-06-10 13:24] VITALS: BP 162/66; PULSE 78; RESP 18; O2SAT 96
[2024-06-10 13:30] VITALS: BP 144/68; PULSE 76; RESP 18; TEMP 36.8; O2SAT 98; BMI 21.1
[2024-06-10] MEDS: methylPREDNISolone ACETATE 80MG/ML VIAL 80 MG (13:30)
[2024-06-10] MEDS: LIDOCAINE 1% 5ML PF VIAL 5 ML (13:31)
[2024-06-10] MEDS: BUPIVACAINE 0.25% 10ML INJ 25 MG IJ (13:33)
--- NOTE | 2024-06-10 13:42 | EXP.PAIN.PRO ---
Procedure Date: 06/10/24 Time: 13:30 Anesthesiologist:: Manish Murillo CRNA Complications:: None Pre-procedure Diagnosis:: DJD right knee. Chronic right knee pain. Post-procedure Diagnosis:: Same. Indications for Procedure:: Patient is a pleasant 88-year-old female comes our clinic today for a right genicular nerve block. Patient has chronic right knee pain she describes as constant, dull, aching. She rates the pain 8/10. Patient not really interested in having right total knee replacement due to her age and decreased level of activity. Procedure Details:: Informed consent was obtained and the risk and benefits of the procedure was explained to the patient. The patient was taken to the procedure room. The right knee was prepped using ChloraPrep. I placed 22-gauge needles into the area of the right superior medial genicular nerve, right superior lateral genicular nerve and right inferior medial genicular nerve. Needle placement was confirmed in AP and lateral views with dye. We then injected bupivacaine 0.25% 3 mL's and Depo-Medrol 25 mg into each area of the right superior medial genicular nerve, right superior lateral genicular nerve and right inferior medial genicular nerve. Patient tolerated the procedure well with no complications. Plan and Disposition:: Patient was discharged without incident.
[2024-06-10 13:44] VITALS: BP 161/68; PULSE 79; RESP 18; O2SAT 98
== END 2024-06-10 13:45 | disposition home or self-care (01) ==
PROVIDERS: PCP Family Medicine; Visit Provider Nurse Anesthetist, Certified Registered
DX: M25.561 Pain in right knee (principal)
CPT/HCPCS: 20610; 64454; J1010

== ENCOUNTER 2024-06-26 10:31 | Outpatient (POV) | payer MEDICARE, SELFPAY ==
--- NOTE | 2024-06-26 10:42 | A.OFFVIS_ITS ---
[facility] Disclaimer: The information contained in this section may have been updated after the patient was seen, as this information can be updated by other users. Medical History Benign positional vertigo Perforation of left tympanic membrane Vertigo Encounter for pre-operative examination Abnormal electrocardiography Hyperlipidemia Hypertension Hypothyroidism Family History Other No significant family history Social History Smoking Status: Former smoker second hand exposure: No alcohol intake: never counseling provided: none substance use type: denies use current occupational status: retired Travel in the last 8 weeks: None household members: spouse housing: house current occupational exposures/hazards: No caffeine: Yes PM Subjective & Objective Subjective Subjective:: Patient is a pleasant 88-year-old female who presents today for follow-up of right genicular nerve block on 06/10/2024. Today she rates her pain a 8 out of 10. Patient denies any new trauma or injury. She does state that she had about 70% relief from this procedure however it only lasted about 2 days. Patient states that it did feel much better and had overall improved function from this procedure. She does state that she is back to her baseline today and does also states she has been having more pain around her right hip. Patient states that she notices this pain a lot more at bedtime and that she cannot lay on that side due to the pain. Patient does describe her pain as an aching sensation. She does feel like today that her knee is still giving her more problems. She would like to repeat her last injection. She states that the constant pain in this joint does interfere with her ability perform activities of daily living such as cooking and cleaning. Patient has been tried on gel injections in the past along with tramadol, heat and ice and topicals with no additional relief. Patient is prescribed compounded cream and states it does help some. Her Tobi has been reviewed and is appropriate. Review of Systems: General: No recent weight changes, no fever, no sleep disturbances Respiratory: No cough, no shortness of air, no recurring pulmonary infections Cardiovascular/peripheral vascular: No chest pain, no palpitations, no edema, no shortness of breath Gastrointestinal: No new onset incontinence, normal bowel movements reported Genitourinary: No new onset incontinence Musculoskeletal: Right knee pain, right hip pain Psychiatric: [Normal mood/affect] Neurological: [Denies weakness in extremities], [denies balance issues] Pain at rest (0-10 scale): 8 Objective Objective:: Physical Exam: General: Alert and oriented x3, no acute distress, pleasant and cooperative Lungs: Respirations even and unlabored, symmetrical chest expansion Eyes: PERRL Musculoskeletal: Flexion and extension of right knee somewhat guarded secondary to pain, [antalgic gait noted] Neurological: Speech clear, no gross sensory deficit Has patient had previous pain injection?: Yes Percent improvement in pain since last injection: 70% Conservative treatment options previously tried: Prescription medications Length of treatment: Longer than 6 weeks Meds Home Medications and Allergies Home Medications ?Medication ?Instructions ?Recorded ?Confirmed ?Type cholecalciferol (vitamin D3) 25 1,000 unit PO ONCE Supplement 12/04/17 06/02/24 History mcg (1,000 unit) capsule levothyroxine 50 mcg tablet 50 mcg PO DAILY THYROID 90 days 12/04/17 06/02/24 History #90 tabs pravastatin 40 mg tablet 40 mg PO DAILY Cholesterol 90 days 12/04/17 06/02/24 History #90 tabs meloxicam 15 mg tablet 15 mg PO DAILY PRN pain #30 tabs 12/03/18 06/02/24 Rx losartan 50 mg tablet 50 mg PO DAILY #90 tabs 10/23/19 06/02/24 History clotrimazole-betamethasone 1 1 applic topical BID #15 grams 12/13/21 06/02/24 Rx %-0.05 % topical cream vit C 250 mg-vit E 90 mg-zinc 40 1 tab PO BID 12/13/21 06/02/24 History mg-copper 1 [id number] capsule (PreserVision AREDS-2) duloxetine 30 mg capsule,delayed 30 mg PO DAILY 11/18/23 06/02/24 History release memantine ER 14 mg-donepezil 10 mg 1 cap PO DAILY 11/18/23 06/02/24 History capsule sprinkle,ext.release 24 hr (Namzaric) metolazone 2.5 mg tablet 2.5 mg PO DAILY 12/31/23 07/15/24 History tramadol 50 mg tablet 50 mg PO BID PRN Pain (Scale Score 11/18/23 06/02/24 History 1-3) tizanidine 4 mg tablet (Zanaflex) 4 mg PO HS #14 tabs 06/02/24 Rx New Prescriptions to Start Prescriptions: Allergies Allergy/AdvReac Type Severity Reaction Status Date / Time No Known Allergies Allergy Verified 05/06/24 11:02 Assessment and Plan *Assessment and plan (1) Right knee pain: Status: Acute Qualifiers: Chronicity: chronic Qualified Code(s): M25.561 - Pain in right knee; G89.29 - Other chronic pain Category: Medical Code(s): M25.561 - Pain in right knee (2) Osteoarthritis of right knee: Status: Acute Qualifiers: Osteoarthritis type: primary Qualified Code(s): M17.11 - Unilateral primary osteoarthritis, right knee Category: Medical Code(s): M17.11 - Unilateral primary osteoarthritis, right knee (3) Greater trochanteric bursitis of right hip: Status: Acute Category: Medical Code(s): M70.61 - Trochanteric bursitis, right hip Plan Patient did have significant improvement with her first genicular nerve block of 70% however only lasted temporary about 2 days. Patient did have improved function with this injection. I did discuss today that she may benefit from repeat genicular nerve block with the plan to progress to a genicular RFA in future. Risk and benefits were discussed with patient and she would like to proceed forward with this plan of care. Patient did also have extreme point tenderness along her right bursa and I did also discussed the risk and benefits of this injection. Patient is interested in this option as well. Patient is stating that the knee is worse however I have counseled her if she ends up deciding that the hip is bothering her more that she can call our office and and let us know. Patient will be submitted for a right genicular nerve block #2 under fluoroscopy. Patient has tried and failed conservative therapy including continued at home stretching exercise for longer than 6 weeks. Patient has been instructed to contact the clinic with any concerns before the next appointment. Dr. Lagunas has reviewed this note and agrees with this plan of care. This note was dictated using voice recognition software and make contain errors or omissions. All injections are used with Lidocaine or Bupivacaine and Depo Medrol.
[2024-06-26 11:10] VITALS: BP 140/68; PULSE 80; RESP 18; O2SAT 95; BMI 22.7
== END 2024-06-26 23:59 | disposition home or self-care (01) ==
LOC: SC.PAIN 10:32
PROVIDERS: Visit Provider Nurse Practitioner Family
DX: M25.561 Pain in right knee (principal); G89.29 Other chronic pain; M17.11 Unilateral primary osteoarthritis, right knee; M70.61 Trochanteric bursitis, right hip; Z87.891 Personal history of nicotine dependence; Z73.89 Other problems related to life management difficulty; Z79.899 Other long term (current) drug therapy
CPT/HCPCS: 99212; G0463

== ENCOUNTER 2024-07-04 09:39 | Outpatient (CLI) | payer MEDICARE, SELFPAY ==
--- NOTE | 2024-07-04 09:42 | US_ITS ---
FINAL REPORT CLINICAL HISTORY: NON-HEALING WOUND RIGHT LOWER LEG X 4 MONTHS COMPARISON: None FINDINGS: ANKLE-BRACHIAL PRESSURE INDICES Pressure indices are as follows: RIGHT LOWER EXTREMITY: Ankle-brachial pressure index: 1.14 Comments: Normal LEFT LOWER EXTREMITY: Ankle-brachial pressure index: 1.18 Comments: Normal CONCLUSION: No evidence of significant obstructive peripheral vascular disease of the lower extremities Reviewed, Interpreted and Dictated by Gasper Crane III, MD Transcribed by Kayli Hodges Authenticated and . [facility]
== END 2024-07-04 23:59 | disposition home or self-care (01) ==
LOC: RT 09:39
PROVIDERS: PCP Family Medicine; Visit Provider Physician Assistant
DX: L97.912 Non-pressure chronic ulcer of unspecified part of right lower leg with fat layer exposed (principal)
CPT/HCPCS: 93923

== ENCOUNTER 2024-07-15 10:38 | Day surgery (SDC) | payer MEDICARE, SELFPAY ==
[2024-07-15 11:01] VITALS: BP 169/89; PULSE 81; RESP 16; TEMP 36.7; O2SAT 96; BMI 21.6
[2024-07-15] MEDS: methylPREDNISolone ACETATE 80MG/ML VIAL 80 MG (11:15)
[2024-07-15] MEDS: LIDOCAINE 1% 5ML PF VIAL 5 ML (11:15)
[2024-07-15] MEDS: BUPIVACAINE 0.25% 10ML INJ 25 MG IJ (11:15)
[2024-07-15 11:17] VITALS: BP 178/70; PULSE 70; RESP 18; O2SAT 97
--- NOTE | 2024-07-15 11:26 | EXP.PAIN.PRO ---
Procedure Date: 07/15/24 Time: 11:10 Anesthesiologist:: Manish Murillo CRNA Complications:: None Pre-procedure Diagnosis:: DJD right knee. Chronic right knee pain. Post-procedure Diagnosis:: Same. Indications for Procedure:: Patient is a pleasant 88-year-old female comes our clinic today for right knee genicular nerve block. Patient describes right knee pain as constant, dull, aching. Patient is ambulatory. However, uses walker and describes not being able to put much weight onto the right leg due to the right knee pain. She rates her pain 8/10. Patient also describes right lateral hip pain. This could very well be right greater trochanteric bursitis. However, I described in detail to the patient and her we will wait until her follow-up visit to determine if indeed this is pain that is radiating from the knee. Procedure Details:: Informed consent was obtained and the risk and benefits of the procedure was explained to the patient. The patient was taken to the procedure room. The left knee was prepped using ChloraPrep. I placed 22-gauge needles into the area of the right superior medial genicular nerve, right superior lateral genicular nerve and right inferior medial genicular nerve. Needle placement was confirmed in AP and lateral views with dye. We then injected bupivacaine 0.25% 3 mL's and Depo-Medrol 25 mg into each area of the right superior medial genicular nerve, right superior lateral genicular nerve and right inferior medial genicular nerve. Patient tolerated the procedure well with no complications. Plan and Disposition:: Patient was discharged without incident.
[2024-07-15 11:30] VITALS: BP 160/57; PULSE 78; RESP 16; O2SAT 96
[2024-07-15 11:37] VITALS: BP 178/70; PULSE 70; RESP 18; O2SAT 97
== END 2024-07-15 11:30 | disposition home or self-care (01) ==
PROVIDERS: PCP Family Medicine; Visit Provider Nurse Anesthetist, Certified Registered
DX: M17.11 Unilateral primary osteoarthritis, right knee (principal); M25.561 Pain in right knee; G89.29 Other chronic pain
CPT/HCPCS: 64454; J1010

== ENCOUNTER 2024-08-07 14:31 | Outpatient (POV) | payer MEDICARE, SELFPAY ==
--- NOTE | 2024-08-07 14:45 | A.OFFVIS_ITS ---
[facility] Disclaimer: The information contained in this section may have been updated after the patient was seen, as this information can be updated by other users. Medical History Benign positional vertigo Perforation of left tympanic membrane Vertigo Encounter for pre-operative examination Abnormal electrocardiography Hyperlipidemia Hypertension Hypothyroidism Family History Other No significant family history Social History Smoking Status: Former smoker second hand exposure: No alcohol intake: never counseling provided: none substance use type: denies use current occupational status: other Travel in the last 8 weeks: None household members: spouse housing: house current occupational exposures/hazards: No caffeine: Yes PM Subjective & Objective Subjective Subjective:: Patient is a pleasant 88-year-old female who presents today for follow-up of her second right genicular nerve block on 07/15/2024. Today she rates her pain a 8 out of 10. Patient denies any new trauma or injury. She does state that she felt like this injection did help significantly of at least 50% lasting 24 hours. She did have about 70% relief with her first block lasting 2 days. Patient does present today with her daughter and . Her does state that she has not been complaining about her knee like what she had in the past. Today she does also state that she continues to have pain all across her right hip. At her last visit we did discuss about possible hip injection. Patient does state that she would like to proceed forward with this option. Patient does state the pain is a dull aching sensation that is worse with increased pressure. Patient states that she frequently cannot lay on that side without having worsening pain and it does interfere with her ability to perform activities of daily living such as cooking and cleaning. She does also states she continues to have the chronic right knee pain. Patient has been tried on gel injections, heat/ice and topicals with no additional relief. Patient is prescribed compounded cream from our office. She denies any side effects from this medication. Patient is currently managed with tramadol 50 mg twice a day and duloxetine from her PCP. Patient states that she did try this for temporarily due to stomach upset however she is not sure if it was related to 1 medication over the other. Her Tobi has been reviewed and is appropriate. Review of Systems: General: No recent weight changes, no fever, no sleep disturbances Respiratory: No cough, no shortness of air, no recurring pulmonary infections Cardiovascular/peripheral vascular: No chest pain, no palpitations, no edema, no shortness of breath Gastrointestinal: No new onset incontinence, normal bowel movements reported Genitourinary: No new onset incontinence Musculoskeletal: Right knee pain, right hip pain Psychiatric: [Normal mood/affect] Neurological: [Denies weakness in extremities], [denies balance issues] Pain at rest (0-10 scale): 8 Objective Objective:: Physical Exam: General: Alert and oriented x3, no acute distress, pleasant and cooperative Lungs: Respirations even and unlabored, symmetrical chest expansion Eyes: PERRL Musculoskeletal: Flexion and extension of right hip somewhat guarded secondary to pain, [antalgic gait noted] point tenderness along right greater trochanteric bursa Neurological: Speech clear, no gross sensory deficit Has patient had previous pain injection?: Yes Percent improvement in pain since last injection: 50% Conservative treatment options previously tried: Home exercise plan Length of treatment: Longer than 6 weeks Meds Home Medications and Allergies Home Medications ?Medication ?Instructions ?Recorded ?Confirmed ?Type cholecalciferol (vitamin D3) 25 1,000 unit PO ONCE Supplement 12/04/17 08/07/24 History mcg (1,000 unit) capsule levothyroxine 50 mcg tablet 50 mcg PO DAILY THYROID 90 days 12/04/17 08/07/24 History #90 tabs pravastatin 40 mg tablet 40 mg PO DAILY Cholesterol 90 days 12/04/17 08/07/24 History #90 tabs meloxicam 15 mg tablet 15 mg PO DAILY PRN pain #30 tabs 12/03/18 08/07/24 Rx losartan 50 mg tablet 50 mg PO DAILY #90 tabs 10/23/19 08/07/24 History clotrimazole-betamethasone 1 1 applic topical BID #15 grams 12/13/21 08/07/24 Rx %-0.05 % topical cream vit C 250 mg-vit E 90 mg-zinc 40 1 tab PO BID 12/13/21 08/07/24 History mg-copper 1 [id number] capsule (PreserVision AREDS-2) duloxetine 30 mg capsule,delayed 30 mg PO DAILY 11/18/23 08/07/24 History release memantine ER 14 mg-donepezil 10 mg 1 cap PO DAILY 11/18/23 08/07/24 History capsule sprinkle,ext.release 24 hr (Namzaric) metolazone 2.5 mg tablet 2.5 mg PO DAILY 11/18/23 08/07/24 History tramadol 50 mg tablet 50 mg PO BID PRN Pain (Scale Score 11/18/23 08/07/24 History 1-3) tizanidine 4 mg tablet (Zanaflex) 4 mg PO HS #14 tabs 06/02/24 08/07/24 Rx New Prescriptions to Start Prescriptions: Allergies Allergy/AdvReac Type Severity Reaction Status Date / Time No Known Allergies Allergy Verified 07/15/24 11:01 Assessment and Plan *Assessment and plan (1) Greater trochanteric bursitis of right hip: Status: Acute Category: Medical Code(s): M70.61 - Trochanteric bursitis, right hip (2) Right knee pain: Status: Acute Qualifiers: Chronicity: chronic Qualified Code(s): M25.561 - Pain in right knee; G89.29 - Other chronic pain Category: Medical Code(s): M25.561 - Pain in right knee (3) Osteoarthritis of right knee: Status: Acute Qualifiers: Osteoarthritis type: primary Qualified Code(s): M17.11 - Unilateral primary osteoarthritis, right knee Category: Medical Code(s): M17.11 - Unilateral primary osteoarthritis, right knee Plan Patient is experiencing worsening pain in and around her right hip with limited range of motion and point tenderness along her right greater trochanteric bursa. I did discuss with the patient that she may benefit from a right greater trochanteric bursa injection. Risk and benefits were discussed with patient and she would like to proceed forward with this plan of care. Patient has tried and failed conservative therapy including continued at home stretching exercise for longer than 6 weeks. Patient will be scheduled for a right greater trochanteric bursa under fluoroscopy. I did also discuss with the patient in future after we do her hip we can revert back to her knee and see about getting her scheduled for the genicular ablation if she is experiencing worsening pain. Patient and family agree with this plan of care. Patient has been instructed to contact the clinic with any concerns before the next appointment. Dr. Lagunas has reviewed this note and agrees with this plan of care. This note was dictated using voice recognition software and make contain errors or omissions. All injections are used with Lidocaine or Bupivacaine and Depo Medrol.
[2024-08-07 14:54] VITALS: BP 116/63; PULSE 94; RESP 16; O2SAT 94; BMI 21.6
== END 2024-08-07 23:59 | disposition home or self-care (01) ==
LOC: SC.PAIN 14:32
PROVIDERS: PCP Family Medicine; Visit Provider Nurse Practitioner Family
DX: M70.61 Trochanteric bursitis, right hip (principal); M25.561 Pain in right knee; G89.29 Other chronic pain; M17.11 Unilateral primary osteoarthritis, right knee; Z87.891 Personal history of nicotine dependence; Z73.89 Other problems related to life management difficulty
CPT/HCPCS: 99212; G0463

== ENCOUNTER 2024-08-26 08:59 | Day surgery (SDC) | payer MEDICARE, SELFPAY ==
[2024-08-26 09:22] VITALS: BP 133/71; PULSE 69; RESP 16; TEMP 36.8; O2SAT 99; BMI 20.3
[2024-08-26] MEDS: methylPREDNISolone ACETATE 80MG/ML VIAL 80 MG (09:56)
[2024-08-26] MEDS: LIDOCAINE 1% 5ML PF VIAL 5 ML (09:57)
[2024-08-26] MEDS: BUPIVACAINE 0.25% 10ML INJ 25 MG IJ (09:57)
[2024-08-26 09:58] VITALS: BP 133/71; PULSE 69; RESP 18; O2SAT 99
--- NOTE | 2024-08-26 11:11 | P.PCN_ITS ---
Procedure Date: 08/26/24 Time: 10:00 Anesthesiologist:: Manish Murillo CRNA Complications:: None Pre-procedure Diagnosis:: Right greater trochanteric bursitis Post-procedure Diagnosis:: Same Indications for Procedure:: Patient is a pleasant 88-year-old female comes our clinic today for right greater trochanteric bursa injection. Patient describes the right lateral hip pain as constant, sharp, stabbing. Patient reports having difficulty ambulating due to the pain. She is having difficulty lying on her right side due to the pain. She rates her pain 9/10. Procedure Details:: Procedure: Right trochanteric bursa injection under fluoroscopy We then moved to the right trochanteric bursa.~ C-arm fluoroscopy was used to view the left greater trochanter.~ The skin and subcutaneous tissues overlying the right greater trochanter were anesthetized using lidocaine, 1.5% and a 25- gauge needle.~ After this, a 22-gauge spinal needle was inserted and advanced until it contacted the right greater trochanter.~ Dye was injected and good spread was seen throughout the right trochanteric bursa. After this, approximately 5 mL of bupivacaine, 0.25% and Depo-Medrol, 40 mg was incrementally injected into the right right trochanteric bursa.~ The patient tolerated the procedure well with no complications. Plan and Disposition:: Patient was discharged without incident.
[2024-08-26 12:07] VITALS: BP 149/71; PULSE 60; RESP 16; TEMP 36.7; O2SAT 99
== END 2024-08-26 10:01 | disposition home or self-care (01) ==
PROVIDERS: PCP Family Medicine; Visit Provider Nurse Anesthetist, Certified Registered
DX: M70.61 Trochanteric bursitis, right hip (principal)
CPT/HCPCS: 20610; 77002; J1010

== ENCOUNTER 2024-09-11 12:21 | Outpatient (CLI) | payer MEDICARE, SELFPAY ==
--- NOTE | 2024-09-11 12:27 | XR_ITS ---
PROCEDURE INFORMATION: Exam: XR Right Knee Exam date and time: 09/11/2024 12:46 PM Age: 88 years old Clinical indication: Pain; Knee; Right; Additional info: Knee pain TECHNIQUE: Imaging protocol: Radiologic exam of the right knee. Views: 3 views. COMPARISON: MR KNEE RT WO CON 03/31/2024 3:54 PM FINDINGS: Bones/joints: There are pronounced degenerative changes of the patellofemoral compartment. No visible fracture or dislocation. Soft tissues: Normal. IMPRESSION: 1. There are pronounced degenerative changes of the patellofemoral compartment. 2. No visible fracture or dislocation.
--- NOTE | 2024-09-11 13:47 | XR_ITS ---
PROCEDURE INFORMATION: Exam: XR Lumbosacral Spine Exam date and time: 09/11/2024 1:58 PM Age: 88 years old Clinical indication: Low back pain; Additional info: Lumbar spine pain TECHNIQUE: Imaging protocol: Radiologic exam of the lumbosacral spine. Views: 4 or 5 views. COMPARISON: No relevant prior studies available. FINDINGS: Bones/joints: Anterolisthesis of L5 over S1 attributed to a chronic bilateral pars defects. Age-indeterminate compression deformity at L3 vertebra. There is otherwise preservation of vertebral body heights. There is diffuse disc desiccation at all lumbar levels. Interpedicular distances are maintained. Advanced bilateral hip osteoarthritis. Soft tissues: Unremarkable. Organs: Cholecystectomy clips are projected in the right upper quadrant. Bilateral calcifications over the renal shadows may represent nephrolithiasis in the appropriate clinical context. IMPRESSION: 1. 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 2. Age-indeterminate compression deformity at L3 vertebra. 3. Bilateral calcifications over the renal shadows may represent nephrolithiasis in the appropriate clinical context.
== END 2024-09-11 23:59 | disposition home or self-care (01) ==
LOC: RAD 12:22
PROVIDERS: PCP Family Medicine; Visit Provider Orthopaedic Surgery
DX: M25.561 Pain in right knee (principal); G89.29 Other chronic pain; M54.50 Low back pain, unspecified
CPT/HCPCS: 72110; 73562

== ENCOUNTER 2024-09-12 14:19 | Outpatient (POV) | payer MEDICARE, SELFPAY ==
[2024-09-12 14:33] VITALS: BP 128/67; PULSE 69; RESP 16; O2SAT 97; BMI 21.1
--- NOTE | 2024-09-12 15:03 | EXP.PAIN.SOA ---
[facility] Disclaimer: The information contained in this section may have been updated after the patient was seen, as this information can be updated by other users. Medical History Benign positional vertigo Perforation of left tympanic membrane Vertigo Encounter for pre-operative examination Abnormal electrocardiography Hyperlipidemia Hypertension Hypothyroidism Family History Other No significant family history Social History Smoking Status: Former smoker second hand exposure: No alcohol intake: never counseling provided: none substance use type: denies use current occupational status: other Travel in the last 8 weeks: None household members: spouse housing: house current occupational exposures/hazards: No caffeine: Yes PM Subjective & Objective Subjective Subjective:: Patient is a pleasant 88-year-old female who presents today for follow-up of right bursa injection on 08/26/2024. Today she rates her pain an 8 out of 10. She states that she really did not notice significant relief with this injection. She does state that she continues to have chronic pain in and around her right knee with popping and clicking with ambulation. She states the pain is severe and does interfere with her ability perform activities of daily living such as cooking and cleaning. Patient does state that she went and saw Dr. Vergara here at [facility] and he stated that he thought it was all related to her back and was not radiating from her knee. Patient does state that she is in constant pain and is interested in any additional improvement we can provide. Patient is on tramadol 50 mg twice a day and duloxetine from her PCP. Patient's does state that she had to stop taking the medication with the D in front of it because it was making her sick. He is asking if there is anything that we can try in place of it. Her Tobi has been reviewed and is appropriate. Review of Systems: General: No recent weight changes, no fever, no sleep disturbances Respiratory: No cough, no shortness of air, no recurring pulmonary infections Cardiovascular/peripheral vascular: No chest pain, no palpitations, no edema, no shortness of breath Gastrointestinal: No new onset incontinence, normal bowel movements reported Genitourinary: No new onset incontinence Musculoskeletal: Right knee pain Psychiatric: [Normal mood/affect] Neurological: [Denies weakness in extremities], [denies balance issues] Pain at rest (0-10 scale): 8 Objective Objective:: Physical Exam: General: Alert and oriented x3, no acute distress, pleasant and cooperative Lungs: Respirations even and unlabored, symmetrical chest expansion Eyes: PERRL Musculoskeletal: Flexion and extension of right knee somewhat guarded secondary to pain, [antalgic gait noted] Neurological: Speech clear, no gross sensory deficit Has patient had previous pain injection?: Yes Percent improvement in pain since last injection: Minimal Conservative treatment options previously tried: Home exercise plan Length of treatment: Longer than 12 weeks Meds Home Medications and Allergies Home Medications ?Medication ?Instructions ?Recorded ?Confirmed ?Type cholecalciferol (vitamin D3) 25 1,000 unit PO ONCE Supplement 12/04/17 09/12/24 History mcg (1,000 unit) capsule levothyroxine 50 mcg tablet 50 mcg PO DAILY THYROID 90 days 12/04/17 09/12/24 History #90 tabs pravastatin 40 mg tablet 40 mg PO DAILY Cholesterol 90 days 12/04/17 09/12/24 History #90 tabs meloxicam 15 mg tablet 15 mg PO DAILY PRN pain #30 tabs 12/03/18 09/12/24 Rx losartan 50 mg tablet 50 mg PO DAILY #90 tabs 10/23/19 09/12/24 History clotrimazole-betamethasone 1 1 applic topical BID #15 grams 12/13/21 09/12/24 Rx %-0.05 % topical cream vit C 250 mg-vit E 90 mg-zinc 40 1 tab PO BID 12/13/21 09/12/24 History mg-copper 1 [id number] capsule (PreserVision AREDS-2) duloxetine 30 mg capsule,delayed 30 mg PO DAILY 11/18/23 09/12/24 History release memantine ER 14 mg-donepezil 10 mg 1 cap PO DAILY 11/18/23 09/12/24 History capsule sprinkle,ext.release 24 hr (Namzaric) metolazone 2.5 mg tablet 2.5 mg PO DAILY 11/18/23 09/12/24 History tramadol 50 mg tablet 50 mg PO BID PRN Pain (Scale Score 11/18/23 09/12/24 History 1-3) tizanidine 4 mg tablet (Zanaflex) 4 mg PO HS #14 tabs 06/02/24 09/12/24 Rx New Prescriptions to Start Prescriptions: Allergies Allergy/AdvReac Type Severity Reaction Status Date / Time No Known Allergies Allergy Verified 09/11/24 13:14 Assessment and Plan *Assessment and plan (1) Right knee pain: Status: Acute Qualifiers: Chronicity: chronic Qualified Code(s): M25.561 - Pain in right knee; G89.29 - Other chronic pain Category: Medical Code(s): M25.561 - Pain in right knee Plan Patient continues to have significant pain in her right knee that is worse when she does get up and ambulate. Patient states she does not really have any low back pain and that she is more confused due to the fact that the orthopedic doctor did feel like it was more from her back. I did discuss at length with the patient due to the fact that we have done 2 diagnostic genicular nerve blocks with both of them providing improvements however very temporary that I do believe at least a portion of it is coming from her knee. Patient did rate 70% improvement lasting 2 days with her first block and 50 at least for about 24 hours with her second block. Patient did feel like the injections helped and that she had improvement in function however it was just very short-lived. I did discuss with the patient regarding the genicular ablation and go over the risk and benefits and the patient would like to proceed forward with this plan of care. Patient has tried and failed conservative therapy including continued at home stretching exercise for longer than 12 weeks. Patient will be scheduled for a right genicular nerve block under fluoroscopic guidance. I will also send in a 2-week dose of baclofen 5 mg 3 times daily as needed. Patient has been instructed to contact the clinic with any concerns before the next appointment. Dr. Lagunas has reviewed this note and agrees with this plan of care. This note was dictated using voice recognition software and make contain errors or omissions. All injections are used with Lidocaine or Bupivacaine and Depo Medrol.
== END 2024-09-12 23:59 | disposition home or self-care (01) ==
PROVIDERS: PCP Family Medicine; Visit Provider Nurse Practitioner Family
DX: M25.561 Pain in right knee (principal); G89.29 Other chronic pain; Z73.89 Other problems related to life management difficulty
CPT/HCPCS: 99212; G0463

== ENCOUNTER 2024-09-30 10:08 | Day surgery (SDC) | payer MEDICARE, SELFPAY ==
[2024-09-30 10:58] VITALS: BP 134/65; PULSE 87; RESP 16; TEMP 36.6; O2SAT 98; BMI 20.3
[2024-09-30] MEDS: LIDOCAINE 1% 5ML PF VIAL 5 ML (11:36)
[2024-09-30] MEDS: BUPIVACAINE 0.25% 10ML INJ 25 MG IJ (11:37)
[2024-09-30] MEDS: methylPREDNISolone ACETATE 80MG/ML VIAL 80 MG (11:37)
--- NOTE | 2024-09-30 11:49 | P.PCN_ITS ---
Procedure Date: 09/30/24 Time: 11:30 Anesthesiologist:: Manish Murillo CRNA Complications:: None Pre-procedure Diagnosis:: DJD right knee. Chronic right knee pain. Post-procedure Diagnosis:: Same. Indications for Procedure:: This patient is a pleasant 88-year-old female who comes our clinic today for right genicular nerve radiofrequency ablation. She responded well to genicular nerve blocks with local anesthetic and cortisone. However, pain relief was short-lived. She describes right knee pain as constant, dull, aching. She rates pain 8/10. Procedure Details:: Informed consent was obtained risk and benefits of the procedure were explained to the patient. Patient was taken the procedure room. The right knee was prepped using ChloraPrep. The skin and subcutaneous tissues were anesthetized using lidocaine. I placed 20-gauge RF needles into the superior lateral genicular nerve area of the superior medial genicular nerve area and inferior medial genicular nerve area we underwent sensory stimulation. There is good sensory stimulation at 1 V. We underwent motor stimulation. There was no motor stimulation at 3 V. We then anesthetized all 3 nerves with bupivacaine and Depo- Medrol. We then burned each genicular nerve superior lateral, superior medial and inferior medial 80 ?C for 4 minutes. Patient tolerated procedure well with no complications. Plan and Disposition:: Patient was discharged without incident.
[2024-09-30 11:51] VITALS: BP 148/100; PULSE 85; RESP 16; O2SAT 94
== END 2024-09-30 11:51 | disposition home or self-care (01) ==
PROVIDERS: PCP Family Medicine; Visit Provider Nurse Practitioner Family
DX: M17.11 Unilateral primary osteoarthritis, right knee (principal); M25.561 Pain in right knee; G89.29 Other chronic pain
CPT/HCPCS: 64624; J1010

== ENCOUNTER 2024-10-23 09:19 | Outpatient (POV) | payer MEDICARE, SELFPAY ==
[2024-10-23 10:08] VITALS: BP 140/79; PULSE 77; RESP 16; O2SAT 98; BMI 21.1
--- NOTE | 2024-10-23 10:08 | A.OFFVIS_ITS ---
[facility] Disclaimer: The information contained in this section may have been updated after the patient was seen, as this information can be updated by other users. Medical History Benign positional vertigo Perforation of left tympanic membrane Vertigo Encounter for pre-operative examination Abnormal electrocardiography Hyperlipidemia Hypertension Hypothyroidism Family History Other No significant family history Social History Smoking Status: Former smoker second hand exposure: No alcohol intake: never counseling provided: none substance use type: denies use current occupational status: other Travel in the last 8 weeks: None household members: spouse housing: house current occupational exposures/hazards: No caffeine: Yes PM Subjective & Objective Subjective Subjective:: Patient is a pleasant 88-year-old female who presents today for follow-up of right genicular ablation on 09/30/2024. Today she rates her pain a 0 while seated and states that she has had at least 50% improvement following the knee injections. She does however state that as soon as she gets up that her pain goes much higher to a 5 or more and that she is complaining more of right hip pain. Patient states that she has difficulty ambulating due to the pain and that she is not able to do any more cooking and relies on her for help in these areas. Patient states the pain is significant and does interfere with her ability perform activities of daily living such as cooking and cleaning. Patient does have her daughter and present for today's visit. They have stated that [employer] [facility] and [employer] did come to their house yesterday and is planning on starting to do some therapy and deal with the wound on her left lower leg. Patient is interested in any help we may be able to provide. Patient has been tried on Tylenol 3, tramadol and compounded cream with no additional relief. Patient's daughter does state that she gets around a little bit with a rollator however overall stays seated most of the time. Her Tobi has been reviewed and is appropriate. Review of Systems: General: No recent weight changes, no fever, no sleep disturbances Respiratory: No cough, no shortness of air, no recurring pulmonary infections Cardiovascular/peripheral vascular: No chest pain, no palpitations, no edema, no shortness of breath Gastrointestinal: No new onset incontinence, normal bowel movements reported Genitourinary: No new onset incontinence Musculoskeletal: Right hip pain Psychiatric: [Normal mood/affect] Neurological: [Denies weakness in extremities], [denies balance issues] Pain at rest (0-10 scale): 5 Objective Objective:: Physical Exam: General: Alert and oriented x3, no acute distress, pleasant and cooperative Lungs: Respirations even and unlabored, symmetrical chest expansion Eyes: PERRL Musculoskeletal: Flexion and extension of right hip somewhat guarded secondary to pain, [antalgic gait noted] Neurological: Speech clear, no gross sensory deficit Has patient had previous pain injection?: Yes Percent improvement in pain since last injection: 50% Conservative treatment options previously tried: Home exercise plan Length of treatment: Longer than 12 weeks Meds Home Medications and Allergies Home Medications ?Medication ?Instructions ?Recorded ?Confirmed ?Type cholecalciferol (vitamin D3) 25 1,000 unit PO ONCE Supplement 12/04/17 10/23/24 History mcg (1,000 unit) capsule levothyroxine 50 mcg tablet 50 mcg PO DAILY THYROID 90 days 12/04/17 10/23/24 History #90 tabs pravastatin 40 mg tablet 40 mg PO DAILY Cholesterol 90 days 12/04/17 10/23/24 History #90 tabs meloxicam 15 mg tablet 15 mg PO DAILY PRN pain #30 tabs 12/03/18 10/23/24 Rx losartan 50 mg tablet 50 mg PO DAILY #90 tabs 10/23/19 10/23/24 History clotrimazole-betamethasone 1 1 applic topical BID #15 grams 12/13/21 10/23/24 Rx %-0.05 % topical cream vit C 250 mg-vit E 90 mg-zinc 40 1 tab PO BID 12/13/21 10/23/24 History mg-copper 1 [id number] capsule (PreserVision AREDS-2) duloxetine 30 mg capsule,delayed 30 mg PO DAILY 11/18/23 10/23/24 History release memantine ER 14 mg-donepezil 10 mg 1 cap PO DAILY 11/18/23 10/23/24 History capsule sprinkle,ext.release 24 hr (Namzaric) metolazone 2.5 mg tablet 2.5 mg PO DAILY 11/18/23 10/23/24 History tramadol 50 mg tablet 50 mg PO BID PRN Pain (Scale Score 11/18/23 10/23/24 History 1-3) tizanidine 4 mg tablet (Zanaflex) 4 mg PO HS #14 tabs 06/02/24 10/23/24 Rx baclofen 5 mg tablet 5 mg PO TID #42 tabs 09/12/24 10/23/24 Rx New Prescriptions to Start Prescriptions: Allergies Allergy/AdvReac Type Severity Reaction Status Date / Time No Known Allergies Allergy Verified 09/11/24 13:14 Assessment and Plan *Assessment and plan (1) Right hip pain: Status: Acute Category: Medical Code(s): M25.551 - Pain in right hip Plan Due to the patient's very limited mobility and worsening pain in her right hip I have discussed that I do believe she would benefit from a intra-articular hip injection. Risk and benefits were discussed with patient and she would like to proceed forward with this plan of care. Patient did have limited range of motion during today's visit. I did also discuss with the patient due to this being chronic issues related to her right knee and right hip pain that she may also benefit from a spinal cord stimulator trial. I did camp counselor the family that this is still treating the symptoms and that she would get a 7-day trial to see if this is possibly a good fit for her pain. Educational handouts were given and risk and benefits discussed. Patient and family would like to proceed forward with both the hip injection and the spinal cord stimulator trial. I will order the patient a psychological evaluation and if she is deemed an appropriate candidate we will proceed forward with a spinal cord stimulator trial at a later date. Patient will be scheduled for a right hip intra- articular injection under fluoroscopy. Patient has been instructed to contact the clinic with any concerns before the next appointment. Dr. Lagunas has reviewed this note and agrees with this plan of care. This note was dictated using voice recognition software and make contain errors or omissions. All injections are used with Lidocaine or Bupivacaine and Depo Medrol.
== END 2024-10-23 23:59 | disposition home or self-care (01) ==
LOC: SC.PAIN 09:20
PROVIDERS: PCP Psychiatry & Neurology Sleep Medicine; Visit Provider Nurse Practitioner Family
DX: M25.551 Pain in right hip (principal); Z87.891 Personal history of nicotine dependence; Z73.89 Other problems related to life management difficulty
CPT/HCPCS: 99212; G0463